=== PATIENT | female | born 1940 | race Caucasian/White ===

== ENCOUNTER → 2017-03-09 | Outpatient (CLI) | payer MEDICARE, OTHER ==
[~2017-03-09] VITALS: Ht 139.7 cm; Wt 79.8 kg
[~2017-03-09] MED LIST: ADV250 IH; ALBU8.5H3 IH; CARV6 PO; CILOOO OU; CLOP75 PO; DILT120T PO; FLUO5DRO3 OP; FURO20 PO; INSNOV SQ; INSU100I15 SQ; INSU100V12 SQ; PANT40TA25 PO; TIMO10DR28 OU; VIT D PO
[2017-03-09 13:55] VITALS: BP 150/66
== END | disposition home or self-care (01) ==
LOC: SRCNTR 13:32
PROVIDERS: ATTEND Internal Medicine Critical Care Medicine
DX: I13.2 Hypertensive heart and chronic kidney disease with heart failure and with stage 5 chronic kidney disease, or end stage renal disease (principal); N18.6 End stage renal disease; G47.33 Obstructive sleep apnea (adult) (pediatric); I34.0 Nonrheumatic mitral (valve) insufficiency; J90 Pleural effusion, not elsewhere classified; E78.5 Hyperlipidemia, unspecified
CPT/HCPCS: G0463

== ENCOUNTER → 2017-05-23 | Outpatient (CLI) | payer MEDICARE, OTHER ==
[~2017-05-23] MED LIST changes: +ALLO100T PO; +AMLO-512 PO; +AMLO2.5T PO; +AMLO5TAB66 PO; +ASA3 PO; +ASPI-556 PO; +ASPI325T PO; +AUD NEB; +CARV12 PO; +CARV3 PO; +CARV6.2579 PO; +CYCL10 PO; +DONE5TAB PO; +FEBU40T PO; +FENO135C PO; +FERR-89 PO; +FOLI1CAP23 PO; +FURO40 PO; +GABA-531 PO; +INSLAN SQ; +INSU100C3 SQ; +INSU100V SQ; +IPRAHFA IH; +ISOS30TA6 PO; +ISOS60TA4 PO; +KAYEXALATE; +LEVAHFA IH; +LEVO500 PO; +LISI-663 PO; +LOSA25TA21 PO; +METF10002 PO; +METO-323 PO; +NIFE60TA71 PO; +NIFE60TA81 PO; +NITR0.4T27 SL; +NTP TD; +OLME20TA14 PO; +PANT40TA PO; +POTA8TAB4 PO; +PRAV40 PO; +PRAV40TA; +PYRI100T2 PO; +UNKNOWN DIABETIC MED; +[UNRECOGNIZED DRUG - OTHER]; +[UNRECOGNIZED DRUG - REMARK]; +[UNRECOGNIZED DRUG - REMARK]; +allopurinol; +cipro; +gabapentin; +lasix; +plavix
== END | disposition home or self-care (01) ==
LOC: RADPV 13:31
PROVIDERS: ATTEND Internal Medicine
DX: M16.11 Unilateral primary osteoarthritis, right hip (principal)
CPT/HCPCS: 73502

== ENCOUNTER → 2017-07-20 | Outpatient (CLI) | payer MEDICARE, OTHER ==
[~2017-07-20] VITALS: Ht 139.7 cm; Wt 80.0 kg
[~2017-07-20] MED LIST changes: -ALLO100T PO; +AMLO-511 PO; -AMLO-512 PO; -AMLO2.5T PO; -AMLO5TAB66 PO; -ASA3 PO; -ASPI-556 PO; -ASPI325T PO; -AUD NEB; -CARV12 PO; -CARV3 PO; -CARV6.2579 PO; +CINA30 PO; -CYCL10 PO; -DONE5TAB PO; -FEBU40T PO; -FENO135C PO; -FERR-89 PO; +FOLI0.8T2 PO; -FOLI1CAP23 PO; -FURO40 PO; -INSLAN SQ; -INSU100C3 SQ; -INSU100I15 SQ; -INSU100V SQ; -IPRAHFA IH; -ISOS30TA6 PO; -ISOS60TA4 PO; -KAYEXALATE; -LEVAHFA IH; -LEVO500 PO; +LISI-662 PO; -LISI-663 PO; -LOSA25TA21 PO; -METF10002 PO; -METO-323 PO; -NIFE60TA71 PO; -NIFE60TA81 PO; -NITR0.4T27 SL; -NTP TD; -OLME20TA14 PO; -PANT40TA PO; -PANT40TA25 PO; +PHOSLOC PO; -POTA8TAB4 PO; -PRAV40 PO; -PRAV40TA; -PYRI100T2 PO; -UNKNOWN DIABETIC MED; -[UNRECOGNIZED DRUG - OTHER]; -[UNRECOGNIZED DRUG - REMARK]; -[UNRECOGNIZED DRUG - REMARK]; -allopurinol; -cipro; -gabapentin; -lasix; -plavix
[2017-07-20 14:11] VITALS: BP 122/43
== END | disposition home or self-care (01) ==
LOC: SRCNTR 13:34
PROVIDERS: ATTEND Internal Medicine Critical Care Medicine
DX: G47.33 Obstructive sleep apnea (adult) (pediatric) (principal); I34.0 Nonrheumatic mitral (valve) insufficiency; E78.5 Hyperlipidemia, unspecified; I13.2 Hypertensive heart and chronic kidney disease with heart failure and with stage 5 chronic kidney disease, or end stage renal disease; N18.6 End stage renal disease; I50.30 Unspecified diastolic (congestive) heart failure; I25.10 Atherosclerotic heart disease of native coronary artery without angina pectoris; J90 Pleural effusion, not elsewhere classified; Z79.4 Long term (current) use of insulin; Z99.2 Dependence on renal dialysis; Z95.5 Presence of coronary angioplasty implant and graft; Z87.891 Personal history of nicotine dependence
CPT/HCPCS: G0463

== ENCOUNTER 2017-08-26 11:36 | Inpatient (IN) | payer MEDICARE, OTHER ==
[~2017-08-26] VITALS: Ht 152.4 cm; Wt 77.0 kg
[2017-08-26 11:57] LABS: GLUCOSE,POINT OF CARE 145 MG/DL (70-110)
[2017-08-26 13:20] LABS: BASOPHILS # (AUTO) 0.04 K/uL (0.00-0.20); BASOPHILS % (AUTO) 0.4 % (0.0-2.0); EOSINOPHILS # (AUTO) 0.09 K/uL (0.00-0.70); HEMATOCRIT 31.4 % (36-46); HEMOGLOBIN 10.5 g/dL (12.0-16.0); LYMPHOCYTES % (AUTO) 12.3 % (22.0-44.0); MEAN CORPUSCULAR HEMOGLOBIN 34.3 pg (26.0-34.0); MEAN CORPUSCULAR HGB CONC 33.5 G/dL (31.0-37.0); MEAN CORPUSCULAR VOLUME 103 fL (80-100); MONOCYTES # (AUTO) 0.4 K/uL (0.1-1.0); NEUTROPHILS # (AUTO) 6.7 K/uL (1.8-7.7); NEUTROPHILS % (AUTO) 81.2 % (40.0-70.0); PLATELET COUNT (AUTO) 170 K/uL (150-450); RBC MORPHOLOGY COMMENT ABNORMAL RBC MORPH; RED BLOOD CELL COUNT(AUTO) 3.06 MIL/uL (4.00-5.20); RED CELL DISTRIBUTION WIDTH 14.5 % (11.5-14.5); WHITE BLOOD COUNT (AUTO) 8.3 K/uL (4.5-11.0)
[2017-08-26 13:27] LABS: PROTHROMBIN TIME 10.7 SEC (9.4-11.6)
[2017-08-26 13:33] LABS: B-TYPE NATRIURETIC PEPTIDE 289 pg/mL (0-100)
[2017-08-26 13:44] LABS: ALANINE AMINOTRANSFERASE 20 U/L (12-78); ALBUMIN 2.9 g/dL (3.4-5.0); ANION GAP 14 mmol/L (8-16); ASPARTATE AMINOTRANSFERASE 12 U/L (15-37); BILIRUBIN,TOTAL 0.1 mg/dL (0.1-1.0); CALCIUM, TOTAL 8.4 mg/dL (8.8-10.5); CARBON DIOXIDE 14 mmol/L (22-29); CHLORIDE 114 mmol/L (98-107); CREATINE KINASE, TOTAL 66 U/L (26-192); CREATININE 5.71 mg/dL (0.60-1.30); GLOMERULAR FILTR. RATE CALC 7 mL/min (>60); SODIUM SERUM 142 mmol/L (136-145); TOTAL PROTEIN, SERUM 6.9 g/dL (6.4-8.2); UREA NITROGEN, BLOOD 93 mg/dL (7-18)
[2017-08-26 13:50] LABS: POTASSIUM 6.8 mmol/L (3.5-5.1)
[2017-08-26 14:16] LABS: APPEARANCE,URINE HAZY (CLEAR); GLUCOSE, URINE (UA) NEGATIVE (NEGATIVE); KETONES,URINE NEGATIVE (NEGATIVE); OCCULT BLOOD,URINE TRACE (NEGATIVE); PH,URINE 5.5 (5.0-8.0); PROTEIN,URINE SEE CONFIRM (NEGATIVE)
[2017-08-26 14:17] LABS: ADD UA MICROSCOPIC YES; LEUKOCYTE ESTERASE ,URINE TRACE (NEGATIVE); SULFOSALICYLIC ACID,URINE 3+ (Negative)
[2017-08-26 14:18] LABS: RBC,URINE 0-2 /HPF (0-2); SQUAMOUS EPITHELIAL CELL,UR Rare /LPF (None Seen); WBC,URINE 26-50 /HPF (0-5)
[2017-08-26 14:19] LABS: HYALINE CASTS, URINE 0-2 /LPF (None Seen)
[2017-08-26] MEDS ORDERED: VITAD1000 PO (14:23)
[2017-08-26] MEDS ORDERED: INSULIN ASPART 100 UNITS/ML SQ ONE (14:30)
[2017-08-26] MEDS ORDERED: ALBUTEROL SULFATE 5 MG/ML 20 ML NEB SOLN [BULK] NEB ONE (14:30)
[2017-08-26] MEDS ORDERED: DEXTROSE 50%-WATER 25 GM/50 ML SYRINGE IVP ONE (14:30)
[2017-08-26] MEDS ORDERED: 0.9% SODIUM CHLORIDE 5 ML NEB SOLUTION NEB ONE (14:34)
[2017-08-26 14:37] LABS: GLUCOSE,POINT OF CARE 115 MG/DL (70-110)
[2017-08-26] MEDS ORDERED: ACETAMINOPHEN 325 MG TABLET PO PRN (15:00)
[2017-08-26] MEDS ORDERED: ONDANSETRON HCL 4 MG/2 ML VIAL IVP PRN (15:00)
[2017-08-26] MEDS ORDERED: 0.9% SODIUM CHLORIDE 10 ML SYRINGE IVP PRN (15:00)
[2017-08-26] MEDS ORDERED: HydrALAZINE HCL 20 MG/ML VIAL IVP PRN (16:15)
[2017-08-26] MEDS ORDERED: MAGNESIUM HYDROXIDE SUSPENSION 30 ML UDCUP PO PRN (16:15)
[2017-08-26] MEDS ORDERED: MORPHINE SULFATE 2 MG/ML SYRINGE IVP ONE (16:15)
[2017-08-26] MEDS ORDERED: ZOLPIDEM TARTRATE 5 MG TABLET PO PRN (16:15)
[2017-08-26] MEDS ORDERED: BISACODYL 10 MG RECTAL RECTAL SUPPOSITORY PR PRN (16:15)
[2017-08-26] MEDS ORDERED: DEXTROSE 50%-WATER 25 GM/50 ML SYRINGE IVP PRN (16:15)
[2017-08-26] MEDS ORDERED: HYDROCODONE/ACETAMINOPHEN 5-325 MG TABLET PO PRN (16:15)
[2017-08-26] MEDS ORDERED: ALBUTEROL SULFATE 2.5 MG/0.5 ML NEB SOLUTION NEB PRN (16:15)
[2017-08-26] MEDS ORDERED: MORPHINE SULFATE 2 MG/ML SYRINGE IVP PRN (16:15)
[2017-08-26 16:53] VITALS: BP 139/62
[2017-08-26] MEDS: ONDANSETRON HCL 4 MG/2 ML VIAL IVP PRN (17:03)
[2017-08-26] MEDS: INSULIN ASPART 100 UNITS/ML SQ PRN ×2 (17:31→21:34)
[2017-08-26 19:24] LABS: CALCIUM, TOTAL 8.4 mg/dL (8.8-10.5); CREATININE 4.05 mg/dL (0.60-1.30); POTASSIUM 4.1 mmol/L (3.5-5.1)
[2017-08-26 19:53] LABS: GLUCOSE,POINT OF CARE 202 MG/DL (70-110)
[2017-08-26 19:59] LABS: GLUCOSE COMMENT 1 Received Meds; GLUCOSE,POINT OF CARE 234 MG/DL (70-110)
[2017-08-26 20:00] VITALS: BP 162/57
[2017-08-26] MEDS: INSULIN DETEMIR 100 UNITS/ML SQ SCH (21:19)
[2017-08-26] MEDS: CARVEDILOL 6.25 MG TABLET PO SCH (21:20)
[2017-08-26] MEDS: DOCUSATE SODIUM 100 MG CAPSULE PO SCH (21:20)
[2017-08-27] VITALS (7 sets, daily range): BP systolic 126–168; BP diastolic 45–68
[2017-08-27] MEDS: HEPARIN SODIUM,PORCINE 5,000 UNITS/ML VIAL SQ SCH ×4 (00:07→23:21)
[2017-08-27] MEDS: NITROGLYCERIN 2% (1 GM=INCH) PACKET TP SCH ×4 (00:08→23:22)
[2017-08-27 04:51] LABS: EOSINOPHILS # (AUTO) 0.06 K/uL (0.00-0.70); EOSINOPHILS % (AUTO) 0.72 % (1.0-6.0); HEMATOCRIT 31.2 % (36-46); HEMOGLOBIN 10.4 g/dL (12.0-16.0); LYMPHOCYTES # (AUTO) 0.9 K/uL (1.0-4.8); LYMPHOCYTES % (AUTO) 10.4 % (22.0-44.0); MEAN CORPUSCULAR HGB CONC 33.2 G/dL (31.0-37.0); MEAN CORPUSCULAR VOLUME 103 fL (80-100); MONOCYTES # (AUTO) 0.6 K/uL (0.1-1.0); MONOCYTES % (AUTO) 6.8 % (2.0-9.0); NEUTROPHILS # (AUTO) 7.1 K/uL (1.8-7.7); NEUTROPHILS % (AUTO) 82.2 % (40.0-70.0); PLATELET COUNT (AUTO) 152 K/uL (150-450); RED BLOOD CELL COUNT(AUTO) 3.04 MIL/uL (4.00-5.20); RED CELL DISTRIBUTION WIDTH 14.4 % (11.5-14.5); WHITE BLOOD COUNT (AUTO) 8.6 K/uL (4.5-11.0)
[2017-08-27 05:17] LABS: ALBUMIN 2.8 g/dL (3.4-5.0); BILIRUBIN,TOTAL 0.2 mg/dL (0.1-1.0); CREATININE 4.87 mg/dL (0.60-1.30); TOTAL PROTEIN, SERUM 6.3 g/dL (6.4-8.2)
[2017-08-27 05:31] LABS: POTASSIUM 6.3 mmol/L (3.5-5.1)
[2017-08-27 06:50] LABS: RBC MORPHOLOGY COMMENT ABNORMAL RBC MORPH
[2017-08-27 07:21] LABS: GLUCOSE,POINT OF CARE 179 MG/DL (70-110)
[2017-08-27 07:21] LABS: GLUCOSE,POINT OF CARE 101 MG/DL (70-110)
[2017-08-27] MEDS: CINACALCET HCL 30 MG TABLET PO SCH ×2 (08:00→10:01)
[2017-08-27] MEDS: ONDANSETRON HCL 4 MG/2 ML VIAL IVP PRN ×3 (08:55→23:22)
[2017-08-27] MEDS: PANTOPRAZOLE SODIUM 40 MG DR TABLET PO SCH ×2 (09:00→10:00)
[2017-08-27] MEDS: CHOLECALCIFEROL (VIT D3) 1,000 UNITS TABLET PO SCH ×2 (09:00→10:00)
[2017-08-27] MEDS: CLOPIDOGREL BISULFATE 75 MG TABLET PO SCH ×2 (09:00→10:00)
[2017-08-27] MEDS: LISINOPRIL 20 MG TABLET PO SCH ×2 (09:00→10:01)
[2017-08-27] MEDS: CARVEDILOL 6.25 MG TABLET PO SCH ×3 (09:00→21:53)
[2017-08-27] MEDS: DOCUSATE SODIUM 100 MG CAPSULE PO SCH ×3 (09:00→21:53)
[2017-08-27 09:35] LABS: CREATINE KINASE MB 1.8 ng/mL (0-5); CREATINE KINASE, TOTAL 81 U/L (26-192)
[2017-08-27 12:46] LABS: ANION GAP 7 mmol/L (8-16); CALCIUM, TOTAL 8.1 mg/dL (8.8-10.5); CARBON DIOXIDE 27 mmol/L (22-29); CHLORIDE 104 mmol/L (98-107); CREATINE KINASE MB 1.9 ng/mL (0-5); CREATINE KINASE, TOTAL 86 U/L (26-192); CREATININE 2.14 mg/dL (0.60-1.30); GLOMERULAR FILTR. RATE CALC 22 mL/min (>60); SODIUM SERUM 138 mmol/L (136-145); UREA NITROGEN, BLOOD 17 mg/dL (7-18)
[2017-08-27] MEDS ORDERED: PENTETATE DTPA TC99M/MCL ISOTOPE 1 EA INJ INJ ONE (13:00)
[2017-08-27] MEDS ORDERED: MAA ALBUMIN AGGREGATED TC99M/UD<10MCL ISOTOPE 1 EA INJ INJ ONE (15:00)
[2017-08-27] MEDS: ACETAMINOPHEN 325 MG TABLET PO PRN (16:11)
[2017-08-27 19:22] LABS: GLUCOSE COMMENT 1 Received Meds; GLUCOSE,POINT OF CARE 138 MG/DL (70-110)
[2017-08-27 20:52] LABS: GLUCOSE,POINT OF CARE 127 MG/DL (70-110)
[2017-08-27] MEDS: INSULIN DETEMIR 100 UNITS/ML SQ SCH (21:59)
[2017-08-27 22:38] LABS: GLUCOSE,POINT OF CARE 123 MG/DL (70-110)
[2017-08-28 04:17] VITALS: BP 116/50
[2017-08-28 06:49] LABS: BASOPHILS % (AUTO) 0.2 % (0.0-2.0); EOSINOPHILS % (AUTO) 0.5 % (1.0-6.0); HEMATOCRIT 32.1 % (36-46); HEMOGLOBIN 10.7 g/dL (12.0-16.0); LYMPHOCYTES # (AUTO) 1.1 K/uL (1.0-4.8); LYMPHOCYTES % (AUTO) 13.1 % (22.0-44.0); MEAN CORPUSCULAR HEMOGLOBIN 33.8 pg (26.0-34.0); MEAN CORPUSCULAR HGB CONC 33.4 G/dL (31.0-37.0); MEAN CORPUSCULAR VOLUME 101 fL (80-100); MONOCYTES # (AUTO) 0.5 K/uL (0.1-1.0); MONOCYTES % (AUTO) 6.3 % (2.0-9.0); NEUTROPHILS # (AUTO) 6.7 K/uL (1.8-7.7); NEUTROPHILS % (AUTO) 79.9 % (40.0-70.0); PLATELET COUNT (AUTO) 162 K/uL (150-450); RED BLOOD CELL COUNT(AUTO) 3.18 MIL/uL (4.00-5.20); RED CELL DISTRIBUTION WIDTH 14.1 % (11.5-14.5); WHITE BLOOD COUNT (AUTO) 8.4 K/uL (4.5-11.0)
[2017-08-28 06:50] LABS: CALCIUM, TOTAL 7.9 mg/dL (8.8-10.5); CREATININE 3.83 mg/dL (0.60-1.30); POTASSIUM 5.1 mmol/L (3.5-5.1)
[2017-08-28 07:17] VITALS: BP 127/58
[2017-08-28] MEDS: CLOPIDOGREL BISULFATE 75 MG TABLET PO SCH (08:08)
[2017-08-28] MEDS: HEPARIN SODIUM,PORCINE 5,000 UNITS/ML VIAL SQ SCH ×2 (08:08→16:08)
[2017-08-28] MEDS: CINACALCET HCL 30 MG TABLET PO SCH (08:08)
[2017-08-28] MEDS: LISINOPRIL 20 MG TABLET PO SCH (08:08)
[2017-08-28] MEDS: CARVEDILOL 6.25 MG TABLET PO SCH ×2 (08:09→21:11)
[2017-08-28] MEDS: NITROGLYCERIN 2% (1 GM=INCH) PACKET TP SCH ×2 (08:09→16:08)
[2017-08-28] MEDS: PANTOPRAZOLE SODIUM 40 MG DR TABLET PO SCH (08:09)
[2017-08-28] MEDS: DOCUSATE SODIUM 100 MG CAPSULE PO SCH ×2 (08:09→21:11)
[2017-08-28] MEDS: CHOLECALCIFEROL (VIT D3) 1,000 UNITS TABLET PO SCH (08:09)
[2017-08-28 10:00] LABS: RBC MORPHOLOGY COMMENT ABNORMAL RBC MORPH
[2017-08-28 11:10] VITALS: BP 118/49
[2017-08-28] MEDS: INSULIN ASPART 100 UNITS/ML SQ PRN (11:51)
[2017-08-28 12:18] LABS: GLUCOSE,POINT OF CARE 140 MG/DL (70-110)
[2017-08-28] MEDS ORDERED: BISACODYL 5 MG EC TABLET PO PRN (14:15)
[2017-08-28 15:28] VITALS: BP 144/56
[2017-08-28 17:28] LABS: GLUCOSE,POINT OF CARE 116 MG/DL (70-110)
[2017-08-28 17:28] LABS: GLUCOSE,POINT OF CARE 86 MG/DL (70-110)
[2017-08-28 19:30] VITALS: BP 117/49
[2017-08-28] MEDS: INSULIN DETEMIR 100 UNITS/ML SQ SCH (21:14)
[2017-08-28] MEDS ORDERED: 0.9% SODIUM CHLORIDE 5 ML NEB SOLUTION NEB ONE (21:39)
[2017-08-28 23:39] VITALS: BP 115/55
[2017-08-29] MEDS: HEPARIN SODIUM,PORCINE 5,000 UNITS/ML VIAL SQ SCH ×3 (00:06→16:50)
[2017-08-29] MEDS: NITROGLYCERIN 2% (1 GM=INCH) PACKET TP SCH ×3 (00:06→16:50)
[2017-08-29 04:32] VITALS: BP 115/49
[2017-08-29 06:06] LABS: BASOPHILS % (AUTO) 0.2 % (0.0-2.0); EOSINOPHILS % (AUTO) 1.5 % (1.0-6.0); LYMPHOCYTES # (AUTO) 1.2 K/uL (1.0-4.8); LYMPHOCYTES % (AUTO) 15.8 % (22.0-44.0); MEAN CORPUSCULAR HEMOGLOBIN 34.1 pg (26.0-34.0); MEAN CORPUSCULAR HGB CONC 33.4 G/dL (31.0-37.0); MEAN CORPUSCULAR VOLUME 102 fL (80-100); MONOCYTES # (AUTO) 0.5 K/uL (0.1-1.0); MONOCYTES % (AUTO) 6.7 % (2.0-9.0); NEUTROPHILS # (AUTO) 5.7 K/uL (1.8-7.7); NEUTROPHILS % (AUTO) 75.8 % (40.0-70.0); PLATELET COUNT (AUTO) 152 K/uL (150-450); RED BLOOD CELL COUNT(AUTO) 2.94 MIL/uL (4.00-5.20); RED CELL DISTRIBUTION WIDTH 14.1 % (11.5-14.5); WHITE BLOOD COUNT (AUTO) 7.5 K/uL (4.5-11.0)
[2017-08-29 06:22] LABS: CALCIUM, TOTAL 7.6 mg/dL (8.8-10.5); CREATININE 5.21 mg/dL (0.60-1.30); POTASSIUM 4.8 mmol/L (3.5-5.1)
[2017-08-29 07:00] VITALS: BP 114/46
[2017-08-29 07:22] LABS: GLUCOSE COMMENT 1 Received Meds; GLUCOSE,POINT OF CARE 168 MG/DL (70-110)
[2017-08-29 07:53] LABS: RBC MORPHOLOGY COMMENT ABNORMAL RBC MORPH
[2017-08-29 09:09] LABS: GLUCOSE,POINT OF CARE 99 MG/DL (70-110)
[2017-08-29] MEDS ORDERED: LEVO500 PO (10:25)
[2017-08-29 11:17] VITALS: BP 120/57
[2017-08-29] MEDS: CLOPIDOGREL BISULFATE 75 MG TABLET PO SCH (13:14)
[2017-08-29] MEDS: CHOLECALCIFEROL (VIT D3) 1,000 UNITS TABLET PO SCH (13:14)
[2017-08-29] MEDS: CARVEDILOL 6.25 MG TABLET PO SCH (13:14)
[2017-08-29] MEDS: CINACALCET HCL 30 MG TABLET PO SCH (13:14)
[2017-08-29] MEDS: LISINOPRIL 20 MG TABLET PO SCH (13:15)
[2017-08-29] MEDS: DOCUSATE SODIUM 100 MG CAPSULE PO SCH (13:15)
[2017-08-29] MEDS: PANTOPRAZOLE SODIUM 40 MG DR TABLET PO SCH (13:15)
[2017-08-29 15:24] VITALS: BP 127/52
[2017-08-29] MEDS: INSULIN ASPART 100 UNITS/ML SQ PRN (17:49)
[2017-08-29] MEDS: ACETAMINOPHEN 325 MG TABLET PO PRN (18:21)
[2017-08-29] MEDS ORDERED: MANNITOL 25%-12.5 GM/50 ML VIAL IVP ONE (18:31)
[2017-08-30 06:28] LABS: GLUCOSE,POINT OF CARE 140 MG/DL (70-110)
[2017-08-30 06:28] LABS: GLUCOSE,POINT OF CARE 162 MG/DL (70-110)
[2017-08-31] MEDS ORDERED: EPOETIN ALFA 10,000 UNITS/ML 2 ML VIAL SQ SCH (09:00)
== END 2017-08-29 18:40 | disposition home or self-care (01) | DRG 291 ==
LOC: EMS 11:38 → 5N 14:48 → ICU 19:09 → 5S 08-27 17:30
PROVIDERS: ADMIT Internal Medicine; ATTEND Internal Medicine
PROC: 5A1D70Z Performance of Urinary Filtration, Intermittent, Less than 6 Hours Per Day (ICD-10-PCS; 2017-08-26)
PROC: 5A09357 Assistance with Respiratory Ventilation, Less than 24 Consecutive Hours, Continuous Positive Airway Pressure (ICD-10-PCS; 2017-08-26)
PROC: 5A1D70Z Performance of Urinary Filtration, Intermittent, Less than 6 Hours Per Day (ICD-10-PCS; principal; 2017-08-27)
PROC: 5A1D70Z Performance of Urinary Filtration, Intermittent, Less than 6 Hours Per Day (ICD-10-PCS; 2017-08-29)
DX: I13.2 Hypertensive heart and chronic kidney disease with heart failure and with stage 5 chronic kidney disease, or end stage renal disease (principal); I50.31 Acute diastolic (congestive) heart failure; E43 Unspecified severe protein-calorie malnutrition; E87.2 Acidosis; I95.9 Hypotension, unspecified; E11.21 Type 2 diabetes mellitus with diabetic nephropathy; E87.5 Hyperkalemia; I27.20 Pulmonary hypertension, unspecified; E11.22 Type 2 diabetes mellitus with diabetic chronic kidney disease; N18.6 End stage renal disease; I31.3 Pericardial effusion (noninflammatory); J98.11 Atelectasis; N39.0 Urinary tract infection, site not specified; D63.1 Anemia in chronic kidney disease; E78.5 Hyperlipidemia, unspecified; G47.33 Obstructive sleep apnea (adult) (pediatric); I25.10 Atherosclerotic heart disease of native coronary artery without angina pectoris; I34.0 Nonrheumatic mitral (valve) insufficiency; R00.0 Tachycardia, unspecified; Z91.19 Patient's noncompliance with other medical treatment and regimen; Z68.33 Body mass index [BMI] 33.0-33.9, adult; Z98.61 Coronary angioplasty status; Z99.2 Dependence on renal dialysis; Z79.02 Long term (current) use of antithrombotics/antiplatelets; Z79.899 Other long term (current) drug therapy; Z79.4 Long term (current) use of insulin; Z87.01 Personal history of pneumonia (recurrent); Z90.49 Acquired absence of other specified parts of digestive tract; Z87.891 Personal history of nicotine dependence; Z91.11 Patient's noncompliance with dietary regimen; Z82.49 Family history of ischemic heart disease and other diseases of the circulatory system
CPT/HCPCS: 78582; 82962; 87081; 87086; 87340; 90935; 93005; 93308; 94640; 94660; 96372; 96374; 99291; A9539; A9540; J0360; J1644; J1815; J2150; J2270; J2405

== ENCOUNTER → 2017-09-16 | Outpatient (CLI) | payer MEDICARE, OTHER ==
[~2017-09-16] MED LIST changes: +ACYC200C PO; -ADV250 IH; -ALBU8.5H3 IH; -AMLO-511 PO; -CILOOO OU; -DILT120T PO; -FLUO5DRO3 OP; +LEVO500 PO; +PANT40TA25 PO; -TIMO10DR28 OU; -VIT D PO; +VITAD1000 PO
== END | disposition home or self-care (01) ==
LOC: RADPV 11:55
PROVIDERS: ATTEND Internal Medicine
DX: M47.814 Spondylosis without myelopathy or radiculopathy, thoracic region (principal); M25.78 Osteophyte, vertebrae; M47.816 Spondylosis without myelopathy or radiculopathy, lumbar region; M51.36 Other intervertebral disc degeneration, lumbar region; M51.37 Other intervertebral disc degeneration, lumbosacral region
CPT/HCPCS: 72070; 72100

== ENCOUNTER 2017-09-22 16:35 | Inpatient (IN) | payer MEDICARE, OTHER ==
[~2017-09-22] VITALS: Ht 147.3 cm; Wt 78.7 kg
[~2017-09-22 16:35] MED LIST changes: -ACYC200C PO; -GABA-531 PO; -PANT40TA25 PO
[2017-09-22] MEDS ORDERED: FOLI0.8T2 PO (16:45)
[2017-09-22] MEDS ORDERED: ACYC200C PO (16:45)
[2017-09-22] MEDS ORDERED: PANT40TA25 PO (16:45)
[2017-09-22] MEDS ORDERED: GABA-531 PO (16:45)
[2017-09-22] MEDS ORDERED: FUROSEMIDE 40 MG/4 ML VIAL IVP ONE (16:45)
[2017-09-22 16:53] LABS: GLUCOSE,POINT OF CARE 172 MG/DL (70-110)
[2017-09-22 16:59] LABS: BASOPHILS # (AUTO) 0.01 K/uL (0.00-0.20); BASOPHILS % (AUTO) 0.2 % (0.0-2.0); EOSINOPHILS # (AUTO) 0.07 K/uL (0.00-0.70); EOSINOPHILS % (AUTO) 1.07 % (1.0-6.0); HEMATOCRIT 29.1 % (36-46); HEMOGLOBIN 9.6 g/dL (12.0-16.0); LYMPHOCYTES # (AUTO) 1.1 K/uL (1.0-4.8); LYMPHOCYTES % (AUTO) 16.5 % (22.0-44.0); MEAN CORPUSCULAR HEMOGLOBIN 33.8 pg (26.0-34.0); MEAN CORPUSCULAR HGB CONC 33.1 G/dL (31.0-37.0); MEAN CORPUSCULAR VOLUME 102 fL (80-100); MONOCYTES # (AUTO) 0.3 K/uL (0.1-1.0); MONOCYTES % (AUTO) 4.8 % (2.0-9.0); NEUTROPHILS # (AUTO) 5.1 K/uL (1.8-7.7); NEUTROPHILS % (AUTO) 77.4 % (40.0-70.0); PLATELET COUNT (AUTO) 173 K/uL (150-450); RED BLOOD CELL COUNT(AUTO) 2.85 MIL/uL (4.00-5.20); RED CELL DISTRIBUTION WIDTH 14.8 % (11.5-14.5)
[2017-09-22 17:23] LABS: CHLORIDE 111 mmol/L (98-107); SODIUM SERUM 143 mmol/L (136-145)
[2017-09-22 17:24] LABS: ALANINE AMINOTRANSFERASE 23 U/L (12-78); ALKALINE PHOSPHATASE 75 U/L (46-116); ANION GAP 13 mmol/L (8-16); ASPARTATE AMINOTRANSFERASE 18 U/L (15-37); BILIRUBIN,TOTAL 0.4 mg/dL (0.1-1.0); CALCIUM, TOTAL 9.3 mg/dL (8.8-10.5); CARBON DIOXIDE 19 mmol/L (22-29); CREATINE KINASE, TOTAL 200 U/L (26-192); CREATININE 9.66 mg/dL (0.60-1.30); GLOMERULAR FILTR. RATE CALC 4 mL/min (>60); GLUCOSE,RANDOM 182 mg/dL (70-110)
[2017-09-22 17:25] LABS: ALBUMIN 2.9 g/dL (3.4-5.0); B-TYPE NATRIURETIC PEPTIDE 904 pg/mL (0-100); TOTAL PROTEIN, SERUM 6.8 g/dL (6.4-8.2)
[2017-09-22 17:27] LABS: POTASSIUM 7.8 mmol/L (3.5-5.1)
[2017-09-22 17:28] LABS: UREA NITROGEN, BLOOD 119 mg/dL (7-18)
[2017-09-22] MEDS ORDERED: SODIUM POLYSTYRENE SULFONATE 15 GM/60 ML SUSPENSION BOTTLE PO ONE (17:30)
[2017-09-22] MEDS ORDERED: ALBUTEROL SULFATE 2.5 MG/0.5 ML NEB SOLUTION NEB ONE ×2 (17:30)
[2017-09-22] MEDS ORDERED: INSULIN REGULAR, HUMAN 100 UNITS/ML IVP ONE (17:30)
[2017-09-22] MEDS ORDERED: SODIUM BICARBONATE [ADULT] 8.4% 50 MEQ/50 ML SYRINGE IVP ONE (17:30)
[2017-09-22] MEDS ORDERED: DEXTROSE 50%-WATER 25 GM/50 ML SYRINGE IVP ONE (17:30)
[2017-09-22 17:41] LABS: ABG BASE EXCESS -7.1 mmol/L (-2.0-3.0); ABG CARBOXYHEMOGLOBIN 1.9 % (0.0-1.5); ABG HCO3 18.8 mmol/L (22.0-26.0); ABG METHEMOGLOBIN 0.1 % (0.0-1.5); ABG OXYGEN CONTENT 12.1 mL/dL (15.0-23.0); ABG OXYGEN SATURATION 89.3 % (95.0-98.0); ABG OXYHEMOGLOBIN 87.5 % (94.0-100.0); ABG PCO2 42 mmHg (35-45); ABG PH 7.286 (7.35-7.450); ABG TOTAL HEMOGLOBIN 9.8 G/dL (12.0-18.0); PO2, ARTERIAL BG 61.4 mmHg (75.0-83.0); SOURCE, BLOOD GAS ARTERIAL; TEMPERATURE, FAHRENHEIT, BG 98.8 FAHREN (96.0-98.6)
[2017-09-22 17:42] LABS: O2 DEVICE,BLOOD GAS ROOM AIR (ROOM AIR); SITE, BLOOD GAS LFT BRACHIAL
[2017-09-22 17:45] LABS: CREATINE KINASE MB 1.5 ng/mL (0-5)
[2017-09-22] MEDS ORDERED: 0.9% SODIUM CHLORIDE 10 ML SYRINGE IVP PRN (18:00)
[2017-09-22] MEDS ORDERED: ONDANSETRON HCL 4 MG/2 ML VIAL IVP PRN (18:00)
[2017-09-22] MEDS ORDERED: INSULIN ASPART 100 UNITS/ML SQ PRN (18:00)
[2017-09-22] MEDS ORDERED: DEXTROSE 50%-WATER 25 GM/50 ML SYRINGE IVP PRN ×2 (18:00→22:00)
[2017-09-22] MEDS ORDERED: ACETAMINOPHEN 325 MG TABLET PO PRN ×2 (18:00→22:00)
[2017-09-22 18:32] LABS: GLUCOSE,POINT OF CARE 301 MG/DL (70-110)
[2017-09-22 18:43] LABS: GLUCOSE,POINT OF CARE 314 MG/DL (70-110)
[2017-09-22 18:56] LABS: APPEARANCE,URINE CLOUDY (CLEAR); BILIRUBIN,URINE NEGATIVE (NEGATIVE); GLUCOSE, URINE (UA) 250 mg/dL (NEGATIVE); KETONES,URINE NEGATIVE (NEGATIVE); LEUKOCYTE ESTERASE ,URINE NEGATIVE (NEGATIVE); NITRATE,URINE NEGATIVE (NEGATIVE); OCCULT BLOOD,URINE TRACE (NEGATIVE); PH,URINE 6.5 (5.0-8.0); PROTEIN,URINE SEE CONFIRM (NEGATIVE); UROBILINOGEN,URINE 0.2 mg/dL (<=1.0)
[2017-09-22 19:20] VITALS: BP 197/67
[2017-09-22 19:55] VITALS: BP 156/72
[2017-09-22 20:02] LABS: BACTERIA,URINE Few /HPF (None Seen); SQUAMOUS EPITHELIAL CELL,UR Moderate /LPF (None Seen); SULFOSALICYLIC ACID,URINE 3+ (Negative); WBC,URINE 0-2 /HPF (0-5)
[2017-09-22] MEDS ORDERED: MANNITOL 25%-12.5 GM/50 ML VIAL IVP PRN (20:30)
[2017-09-22] MEDS ORDERED: ALBUMIN HUMAN 25%-12.5GM/50ML IV BOTTLE IV PRN (20:30)
[2017-09-22 21:17] VITALS: BP 129/62
[2017-09-22 21:43] LABS: GLUCOMETER DEV NAME(LOC) 5N 1M; GLUCOSE,POINT OF CARE 174 MG/DL (70-110)
[2017-09-22] MEDS ORDERED: BISACODYL 10 MG RECTAL RECTAL SUPPOSITORY PR PRN (22:00)
[2017-09-22] MEDS ORDERED: ALBUTEROL SULFATE 2.5 MG/0.5 ML NEB SOLUTION NEB PRN (22:00)
[2017-09-23 00:02] VITALS: BP 157/63
[2017-09-23 05:29] VITALS: BP 147/68
[2017-09-23 06:38] LABS: BASOPHILS % (AUTO) 0.3 % (0.0-2.0); EOSINOPHILS % (AUTO) 0.8 % (1.0-6.0); HEMATOCRIT 27.5 % (36-46); HEMOGLOBIN 9.4 g/dL (12.0-16.0); LYMPHOCYTES # (AUTO) 0.9 K/uL (1.0-4.8); LYMPHOCYTES % (AUTO) 12.1 % (22.0-44.0); MEAN CORPUSCULAR HEMOGLOBIN 34.2 pg (26.0-34.0); MEAN CORPUSCULAR VOLUME 101 fL (80-100); MONOCYTES # (AUTO) 0.5 K/uL (0.1-1.0); MONOCYTES % (AUTO) 6.7 % (2.0-9.0); NEUTROPHILS # (AUTO) 6.2 K/uL (1.8-7.7); NEUTROPHILS % (AUTO) 80.1 % (40.0-70.0); PLATELET COUNT (AUTO) 169 K/uL (150-450); RED BLOOD CELL COUNT(AUTO) 2.74 MIL/uL (4.00-5.20); RED CELL DISTRIBUTION WIDTH 14.2 % (11.5-14.5)
[2017-09-23 06:54] LABS: ALBUMIN 2.7 g/dL (3.4-5.0); BILIRUBIN,TOTAL 0.4 mg/dL (0.1-1.0); CALCIUM, TOTAL 8.3 mg/dL (8.8-10.5); CREATININE 7.08 mg/dL (0.60-1.30); POTASSIUM 4.1 mmol/L (3.5-5.1); TOTAL PROTEIN, SERUM 6.3 g/dL (6.4-8.2)
[2017-09-23 07:47] VITALS: BP 156/62
[2017-09-23] MEDS: DOCUSATE SODIUM 100 MG CAPSULE PO SCH ×2 (08:33→20:46)
[2017-09-23] MEDS: CLOPIDOGREL BISULFATE 75 MG TABLET PO SCH (08:33)
[2017-09-23] MEDS: PANTOPRAZOLE SODIUM 40 MG DR TABLET PO SCH (08:33)
[2017-09-23] MEDS: HEPARIN SODIUM,PORCINE 5,000 UNITS/ML VIAL SQ SCH ×2 (08:33→20:46)
[2017-09-23] MEDS: ASPIRIN 81 MG CHEWABLE TABLET PO SCH (08:33)
[2017-09-23] MEDS: CARVEDILOL 6.25 MG TABLET PO SCH ×2 (09:00→20:46)
[2017-09-23] MEDS ORDERED: DOXERCALCIFEROL 4 MCG/2 ML AMP IVP SCH (09:45)
[2017-09-23] MEDS ORDERED: EPOETIN ALFA 10,000 UNITS/ML 2 ML VIAL SQ ONE (09:45)
[2017-09-23 11:31] VITALS: BP 144/57
[2017-09-23] MEDS: INSULIN ASPART 100 UNITS/ML SQ PRN ×2 (12:08→17:57)
[2017-09-23 15:08] VITALS: BP 150/62
[2017-09-23] MEDS: CINACALCET HCL 30 MG TABLET PO SCH (17:57)
[2017-09-23 19:32] VITALS: BP 148/57
[2017-09-23] MEDS ORDERED: ATORVASTATIN CALCIUM 20 MG TABLET PO SCH (21:00)
[2017-09-23] MEDS ORDERED: DOXERCALCIFEROL 4 MCG/2 ML AMP IVP PRN (21:00)
[2017-09-24 00:01] VITALS: BP 154/55
[2017-09-24 04:46] VITALS: BP 132/52
[2017-09-24 06:33] LABS: GLUCOMETER DEV NAME(LOC) 5N 1M; GLUCOSE,POINT OF CARE 135 MG/DL (70-110)
[2017-09-24 06:33] LABS: GLUCOMETER DEV NAME(LOC) 5N 1M; GLUCOSE,POINT OF CARE 113 MG/DL (70-110)
[2017-09-24 06:33] LABS: GLUCOMETER DEV NAME(LOC) 5N 1M; GLUCOSE,POINT OF CARE 177 MG/DL (70-110)
[2017-09-24 07:36] VITALS: BP 145/48
[2017-09-24] MEDS: PANTOPRAZOLE SODIUM 40 MG DR TABLET PO SCH (09:01)
[2017-09-24] MEDS: DOCUSATE SODIUM 100 MG CAPSULE PO SCH (09:01)
[2017-09-24] MEDS: ASPIRIN 81 MG CHEWABLE TABLET PO SCH (09:02)
[2017-09-24] MEDS: HEPARIN SODIUM,PORCINE 5,000 UNITS/ML VIAL SQ SCH (09:02)
[2017-09-24] MEDS: CLOPIDOGREL BISULFATE 75 MG TABLET PO SCH (09:02)
[2017-09-24] MEDS ORDERED: ONDANSETRON HCL 4 MG/2 ML VIAL IVP PRN (10:45)
[2017-09-24 11:32] VITALS: BP 129/55
[2017-09-24 12:10] LABS: GLUCOMETER DEV NAME(LOC) 5N 2R; GLUCOSE,POINT OF CARE 127 MG/DL (70-110)
[2017-09-24 12:10] LABS: GLUCOMETER DEV NAME(LOC) 5N 2R; GLUCOSE,POINT OF CARE 171 MG/DL (70-110)
[2017-09-24 12:10] LABS: GLUCOMETER DEV NAME(LOC) 5N 2R; GLUCOSE,POINT OF CARE 103 MG/DL (70-110)
[2017-09-24] MEDS: INSULIN ASPART 100 UNITS/ML SQ PRN ×2 (12:59→17:50)
[2017-09-24] MEDS: CARVEDILOL 6.25 MG TABLET PO SCH (13:00)
[2017-09-24 15:27] VITALS: BP 118/43
[2017-09-24 17:13] LABS: GLUCOMETER DEV NAME(LOC) 5N 2R; GLUCOSE,POINT OF CARE 113 MG/DL (70-110)
[2017-09-24] MEDS: CINACALCET HCL 30 MG TABLET PO SCH (18:04)
[2017-09-27] MEDS ORDERED: EPOETIN ALFA 10,000 UNITS/ML 2 ML VIAL SQ SCH (09:00)
== END 2017-09-24 19:05 | disposition home or self-care (01) | DRG 640 ==
LOC: EMS 16:37 → 5N 18:00
PROVIDERS: ADMIT Internal Medicine; ATTEND Internal Medicine
PROC: 5A1D70Z Performance of Urinary Filtration, Intermittent, Less than 6 Hours Per Day (ICD-10-PCS; principal; 2017-09-22)
PROC: 5A1D70Z Performance of Urinary Filtration, Intermittent, Less than 6 Hours Per Day (ICD-10-PCS; 2017-09-23)
PROC: 5A1D70Z Performance of Urinary Filtration, Intermittent, Less than 6 Hours Per Day (ICD-10-PCS; 2017-09-24)
DX: E87.5 Hyperkalemia (principal); N18.6 End stage renal disease; N17.9 Acute kidney failure, unspecified; E44.0 Moderate protein-calorie malnutrition; E87.2 Acidosis; I50.9 Heart failure, unspecified; E11.21 Type 2 diabetes mellitus with diabetic nephropathy; E11.65 Type 2 diabetes mellitus with hyperglycemia; E11.22 Type 2 diabetes mellitus with diabetic chronic kidney disease; Z91.19 Patient's noncompliance with other medical treatment and regimen; E66.9 Obesity, unspecified; D63.1 Anemia in chronic kidney disease; I12.9 Hypertensive chronic kidney disease with stage 1 through stage 4 chronic kidney disease, or unspecified chronic kidney disease; I25.10 Atherosclerotic heart disease of native coronary artery without angina pectoris; M16.10 Unilateral primary osteoarthritis, unspecified hip; Z79.4 Long term (current) use of insulin; Z82.49 Family history of ischemic heart disease and other diseases of the circulatory system; Z83.3 Family history of diabetes mellitus; Z86.19 Personal history of other infectious and parasitic diseases; Z87.891 Personal history of nicotine dependence; Z91.15 Patient's noncompliance with renal dialysis; Z95.1 Presence of aortocoronary bypass graft; Z95.5 Presence of coronary angioplasty implant and graft; Z99.2 Dependence on renal dialysis; Z99.81 Dependence on supplemental oxygen
CPT/HCPCS: 82805; 82962; 87040; 87081; 87340; 90935; 93005; 96374; 96375; 99291; J0885; J1644; J1815; J1940; J2405; J3490

== ENCOUNTER → 2017-12-21 | Outpatient (CLI) | payer MEDICARE, OTHER ==
[~2017-12-21] VITALS: Ht 139.7 cm; Wt 79.5 kg
[~2017-12-21] MED LIST changes: -FURO20 PO; +FURO40 PO; +GABA-531 PO; -LEVO500 PO; +PANT40TA25 PO
[2017-12-21 11:44] VITALS: BP 146/50
== END | disposition home or self-care (01) ==
LOC: SRCNTR 11:37
PROVIDERS: ATTEND Internal Medicine Critical Care Medicine
DX: G47.33 Obstructive sleep apnea (adult) (pediatric) (principal); I12.0 Hypertensive chronic kidney disease with stage 5 chronic kidney disease or end stage renal disease; N18.6 End stage renal disease; J90 Pleural effusion, not elsewhere classified; I34.0 Nonrheumatic mitral (valve) insufficiency; I27.20 Pulmonary hypertension, unspecified; E78.5 Hyperlipidemia, unspecified; I25.10 Atherosclerotic heart disease of native coronary artery without angina pectoris; Z99.2 Dependence on renal dialysis; Z99.81 Dependence on supplemental oxygen
CPT/HCPCS: G0463

== ENCOUNTER → 2017-12-23 | Outpatient (CLI) | payer MEDICARE, OTHER ==
[~2017-12-23] MED LIST changes: -FURO40 PO; -GABA-531 PO; -INSU100V12 SQ; -LISI-662 PO
== END | disposition home or self-care (01) ==
LOC: RADPV 08:48
PROVIDERS: ATTEND Internal Medicine Critical Care Medicine
DX: I08.3 Combined rheumatic disorders of mitral, aortic and tricuspid valves (principal)
CPT/HCPCS: 93306

== ENCOUNTER → 2017-12-30 | Outpatient (CLI) | payer MEDICARE, OTHER ==
[~2017-12-30] VITALS: Ht 139.7 cm; Wt 72.0 kg
[~2017-12-30] MED LIST changes: +FURO40 PO; +GABA-531 PO; +INSU100V12 SQ; +LISI-662 PO
[2017-12-30 10:29] VITALS: BP 112/43
== END | disposition home or self-care (01) ==
LOC: SRCNTR 10:02
PROVIDERS: ATTEND Internal Medicine Cardiovascular Disease
DX: I25.10 Atherosclerotic heart disease of native coronary artery without angina pectoris (principal); I12.0 Hypertensive chronic kidney disease with stage 5 chronic kidney disease or end stage renal disease; E11.22 Type 2 diabetes mellitus with diabetic chronic kidney disease; N18.6 End stage renal disease; E78.5 Hyperlipidemia, unspecified; J44.9 Chronic obstructive pulmonary disease, unspecified; G47.30 Sleep apnea, unspecified; Z99.2 Dependence on renal dialysis
CPT/HCPCS: G0463

== ENCOUNTER → 2018-03-20 | Outpatient (CLI) | payer MEDICARE, OTHER ==
[~2018-03-20] VITALS: Ht 139.7 cm; Wt 78.0 kg
[~2018-03-20] MED LIST changes: +AMLO-511 PO; +BRIM15OS OU; -CINA30 PO; +FOLI1CAP2 PO; -INSNOV SQ; +INSU100I3 SQ; -LISI-662 PO; +SENN-175 PO; +SODI650T PO; +TIMO10DR28 OU
[2018-03-20 13:00] VITALS: BP 150/60
== END | disposition home or self-care (01) ==
LOC: SRCNTR 12:06
PROVIDERS: ATTEND Internal Medicine Critical Care Medicine
DX: G47.33 Obstructive sleep apnea (adult) (pediatric) (principal); I34.0 Nonrheumatic mitral (valve) insufficiency; J90 Pleural effusion, not elsewhere classified; I13.2 Hypertensive heart and chronic kidney disease with heart failure and with stage 5 chronic kidney disease, or end stage renal disease; N18.6 End stage renal disease; I50.30 Unspecified diastolic (congestive) heart failure
CPT/HCPCS: G0463

== ENCOUNTER → 2018-03-29 | Outpatient (CLI) | payer MEDICARE, OTHER ==
[~2018-03-29] VITALS: Ht 139.7 cm; Wt 80.0 kg
[2018-03-29 11:11] VITALS: BP 135/76
== END | disposition home or self-care (01) ==
LOC: SRCNTR 10:51
PROVIDERS: ATTEND Internal Medicine Cardiovascular Disease
DX: I25.10 Atherosclerotic heart disease of native coronary artery without angina pectoris (principal); I12.0 Hypertensive chronic kidney disease with stage 5 chronic kidney disease or end stage renal disease; E11.22 Type 2 diabetes mellitus with diabetic chronic kidney disease; N18.6 End stage renal disease; E78.5 Hyperlipidemia, unspecified; G47.30 Sleep apnea, unspecified; J44.9 Chronic obstructive pulmonary disease, unspecified; Z79.4 Long term (current) use of insulin; Z99.2 Dependence on renal dialysis
CPT/HCPCS: G0463

== ENCOUNTER → 2018-05-29 | Outpatient (CLI) | payer MEDICARE, OTHER ==
[~2018-05-29] VITALS: Ht 137.2 cm; Wt 79.0 kg
[~2018-05-29] MED LIST changes: -FOLI1CAP2 PO; -PANT40TA25 PO
[2018-05-29 10:55] VITALS: BP 179/65
== END | disposition home or self-care (01) ==
LOC: SRCNTR 10:52
PROVIDERS: ATTEND Internal Medicine Cardiovascular Disease
DX: I11.0 Hypertensive heart disease with heart failure (principal); E11.22 Type 2 diabetes mellitus with diabetic chronic kidney disease; N18.9 Chronic kidney disease, unspecified; I25.10 Atherosclerotic heart disease of native coronary artery without angina pectoris; J44.9 Chronic obstructive pulmonary disease, unspecified; E78.5 Hyperlipidemia, unspecified
CPT/HCPCS: G0463

== ENCOUNTER → 2018-06-09 | Outpatient (CLI) | payer MEDICARE, OTHER | END | disposition home or self-care (01) | LOC: RADPV 13:21 | PROVIDERS: ATTEND Internal Medicine | DX: M17.12 Unilateral primary osteoarthritis, left knee (principal); M79.89 Other specified soft tissue disorders; M47.817 Spondylosis without myelopathy or radiculopathy, lumbosacral region; M54.2 Cervicalgia | CPT/HCPCS: 72040; 72100; 73502; 73503 ==

== ENCOUNTER 2018-07-25 15:53 | Inpatient (IN) | payer MEDICARE, OTHER ==
[~2018-07-25] VITALS: Ht 144.8 cm; Wt 82.2 kg
[2018-07-25 16:19] LABS: GLUCOSE,POINT OF CARE 109 MG/DL (70-110)
[2018-07-25 16:27] LABS: BASOPHILS % (AUTO) 0.4 % (0.0-2.0); EOSINOPHILS % (AUTO) 1.3 % (1.0-6.0); HEMATOCRIT 32.5 % (36-46); HEMOGLOBIN 10.6 g/dL (12.0-16.0); LYMPHOCYTES % (AUTO) 6.3 % (22.0-44.0); MEAN CORPUSCULAR HEMOGLOBIN 32.4 pg (26.0-34.0); MEAN CORPUSCULAR HGB CONC 32.7 G/dL (31.0-37.0); MEAN CORPUSCULAR VOLUME 99 fL (80-100); MONOCYTES # (AUTO) 0.6 K/uL (0.1-1.0); MONOCYTES % (AUTO) 3.6 % (2.0-9.0); NEUTROPHILS # (AUTO) 13.6 K/uL (1.8-7.7); PLATELET COUNT (AUTO) 183 K/uL (150-450); RED BLOOD CELL COUNT(AUTO) 3.28 MIL/uL (4.00-5.20); RED CELL DISTRIBUTION WIDTH 14.7 % (11.5-14.5)
[2018-07-25 16:28] LABS: NEUTROPHILS % (AUTO) 88.4 % (40.0-70.0)
[2018-07-25] MEDS ORDERED: IPRATROPIUM BROMIDE 0.5 MG/2.5 ML NEB SOLUTION NEB ONE (16:30)
[2018-07-25] MEDS ORDERED: ALBUTEROL SULFATE 2.5 MG/0.5 ML NEB SOLUTION NEB ONE (16:30)
[2018-07-25 16:47] LABS: ALBUMIN 2.6 g/dL (3.4-5.0); BILIRUBIN,TOTAL 0.4 mg/dL (0.1-1.0); CALCIUM, TOTAL 9.2 mg/dL (8.8-10.5); CREATININE 7.66 mg/dL (0.60-1.30); TOTAL PROTEIN, SERUM 7.3 g/dL (6.4-8.2)
[2018-07-25 16:54] LABS: PLATELET MORPHOLOGY COMMENT NORMAL; POTASSIUM 7.3 mmol/L (3.5-5.1)
[2018-07-25] MEDS ORDERED: INSULIN REGULAR, HUMAN 100 UNITS/ML IVP ONE (17:15)
[2018-07-25] MEDS ORDERED: FUROSEMIDE 40 MG/4 ML VIAL IVP ONE (17:15)
[2018-07-25] MEDS ORDERED: SODIUM BICARBONATE [ADULT] 8.4% 50 MEQ/50 ML SYRINGE IVP ONE (17:15)
[2018-07-25] MEDS ORDERED: SODIUM POLYSTYRENE SULFONATE 15 GM/60 ML SUSPENSION BOTTLE PO ONE (17:15)
[2018-07-25] MEDS ORDERED: DEXTROSE 50%-WATER 25 GM/50 ML SYRINGE IVP ONE (17:15)
[2018-07-25] MEDS ORDERED: ACETAMINOPHEN 500 MG TABLET PO ONE (17:15)
[2018-07-25] MEDS ORDERED: AZITHROMYCIN 500 MG/NS 250 ML IV ONE (17:45)
[2018-07-25] MEDS ORDERED: CefTRIAXone SODIUM 1 GM in DEXTROSE 5%-WATER 10 ML IV ONE (17:45)
[2018-07-25] MEDS ORDERED: CALCIUM GLUCONATE 100 MG/ML 10 ML IVP ONE (19:15)
[2018-07-25] MEDS ORDERED: 0.9% SODIUM CHLORIDE 10 ML SYRINGE IVP PRN (20:15)
[2018-07-25] MEDS ORDERED: ACETAMINOPHEN 325 MG TABLET PO PRN (20:15)
[2018-07-25] MEDS ORDERED: ONDANSETRON HCL 4 MG/2 ML VIAL IVP PRN (20:15)
[2018-07-25 20:28] VITALS: BP 137/67
[2018-07-25] MEDS ORDERED: MANNITOL 25%-12.5 GM/50 ML VIAL IVP PRN (22:00)
[2018-07-26] VITALS (7 sets, daily range): BP systolic 90–140; BP diastolic 31–58
[2018-07-26] MEDS ORDERED: NITR.4 SL (01:25)
[2018-07-26] MEDS ORDERED: DEXTROSE 50%-WATER 25 GM/50 ML SYRINGE IVP PRN (02:15)
[2018-07-26] MEDS ORDERED: MAGNESIUM HYDROXIDE SUSPENSION 30 ML UDCUP PO PRN (07:00)
[2018-07-26] MEDS ORDERED: ALBUTEROL SULFATE 2.5 MG/0.5 ML NEB SOLUTION NEB PRN (07:00)
[2018-07-26] MEDS ORDERED: MORPHINE SULFATE 2 MG/ML SYRINGE IVP PRN (07:00)
[2018-07-26] MEDS ORDERED: IPRATROPIUM BROMIDE 0.5 MG/2.5 ML NEB SOLUTION NEB PRN (07:00)
[2018-07-26] MEDS ORDERED: ZOLPIDEM TARTRATE 5 MG TABLET PO PRN (07:00)
[2018-07-26] MEDS ORDERED: BISACODYL 10 MG RECTAL RECTAL SUPPOSITORY PR PRN (07:00)
[2018-07-26] MEDS: PANTOPRAZOLE SODIUM 40 MG/VIAL IVP SCH (08:55)
[2018-07-26] MEDS: DOCUSATE SODIUM 100 MG CAPSULE PO SCH ×2 (08:55→21:09)
[2018-07-26] MEDS: FUROSEMIDE 40 MG TABLET PO SCH ×2 (08:55→21:09)
[2018-07-26] MEDS: CARVEDILOL 6.25 MG TABLET PO SCH ×2 (08:55→21:00)
[2018-07-26] MEDS: HEPARIN SODIUM,PORCINE 5,000 UNITS/ML VIAL SQ SCH ×2 (08:55→18:13)
[2018-07-26] MEDS: AmLODIPine BESYLATE 5 MG TABLET PO SCH ×2 (08:56→21:00)
[2018-07-26] MEDS: CLOPIDOGREL BISULFATE 75 MG TABLET PO SCH (08:56)
[2018-07-26] MEDS: GABAPENTIN 300 MG CAPSULE PO SCH ×3 (08:56→21:08)
[2018-07-26] MEDS: CHOLECALCIFEROL (VIT D3) 1,000 UNITS TABLET PO SCH (08:56)
[2018-07-26 09:49] LABS: BASOPHILS % (AUTO) 0.4 % (0.0-2.0); EOSINOPHILS % (AUTO) 1.4 % (1.0-6.0); HEMATOCRIT 30.8 % (36-46); HEMOGLOBIN 10.4 g/dL (12.0-16.0); LYMPHOCYTES # (AUTO) 0.7 K/uL (1.0-4.8); LYMPHOCYTES % (AUTO) 7.8 % (22.0-44.0); MEAN CORPUSCULAR HEMOGLOBIN 33.5 pg (26.0-34.0); MEAN CORPUSCULAR HGB CONC 33.6 G/dL (31.0-37.0); MEAN CORPUSCULAR VOLUME 100 fL (80-100); MONOCYTES # (AUTO) 0.5 K/uL (0.1-1.0); NEUTROPHILS # (AUTO) 8.1 K/uL (1.8-7.7); PLATELET COUNT (AUTO) 155 K/uL (150-450); RED BLOOD CELL COUNT(AUTO) 3.09 MIL/uL (4.00-5.20); RED CELL DISTRIBUTION WIDTH 14.6 % (11.5-14.5)
[2018-07-26 09:55] LABS: NEUTROPHILS % (AUTO) 85.4 % (40.0-70.0)
[2018-07-26 10:09] LABS: ALBUMIN 2.4 g/dL (3.4-5.0); BILIRUBIN,TOTAL 0.3 mg/dL (0.1-1.0); CALCIUM, TOTAL 8.7 mg/dL (8.8-10.5); CREATININE 4.4 mg/dL (0.60-1.30); MAGNESIUM 1.7 mg/dL (1.80-2.40); PHOSPHORUS 8.5 mg/dL (2.5-4.9); POTASSIUM 4.6 mmol/L (3.5-5.1)
[2018-07-26] MEDS ORDERED: SODIUM CHLORIDE 0.9% 1,000 ML IV ONE ×2 (13:36→17:53)
[2018-07-26] MEDS ORDERED: SODIUM CHLORIDE 0.9% 250 ML IV ONE ×3 (17:18→19:15)
[2018-07-26] MEDS: ONDANSETRON HCL 4 MG/2 ML VIAL IVP PRN (17:27)
[2018-07-26] MEDS: CefTRIAXone SODIUM 1 GM in DEXTROSE 5%-WATER 10 ML IV SCH (17:31)
[2018-07-26] MEDS: AZITHROMYCIN 500 MG/NS 250 ML IV SCH (18:17)
[2018-07-26 20:17] LABS: CALCIUM, TOTAL 8.2 mg/dL (8.8-10.5); CREATININE 3.07 mg/dL (0.60-1.30); POTASSIUM 4.4 mmol/L (3.5-5.1)
[2018-07-26] MEDS: INSULIN LISPRO 100 UNITS/ML SQ PRN (21:23)
[2018-07-27] VITALS: BP 119/50
[2018-07-27] MEDS: HEPARIN SODIUM,PORCINE 5,000 UNITS/ML VIAL SQ SCH ×3 (00:28→16:11)
[2018-07-27 04:00] VITALS: BP 124/49
[2018-07-27 07:31] LABS: CALCIUM, TOTAL 8.3 mg/dL (8.8-10.5); CREATININE 4.09 mg/dL (0.60-1.30); MAGNESIUM 1.7 mg/dL (1.80-2.40); POTASSIUM 4.5 mmol/L (3.5-5.1)
[2018-07-27 08:00] VITALS: BP 127/93
[2018-07-27 08:00] LABS: PHOSPHORUS 9.9 mg/dL (2.5-4.9)
[2018-07-27] MEDS: AmLODIPine BESYLATE 5 MG TABLET PO SCH ×2 (09:00→21:00)
[2018-07-27] MEDS: CARVEDILOL 6.25 MG TABLET PO SCH ×2 (09:00→21:00)
[2018-07-27] MEDS: DOCUSATE SODIUM 100 MG CAPSULE PO SCH ×2 (09:03→21:00)
[2018-07-27] MEDS: FUROSEMIDE 40 MG TABLET PO SCH (09:04)
[2018-07-27] MEDS: CLOPIDOGREL BISULFATE 75 MG TABLET PO SCH (09:04)
[2018-07-27] MEDS: GABAPENTIN 300 MG CAPSULE PO SCH (09:04)
[2018-07-27] MEDS: CHOLECALCIFEROL (VIT D3) 1,000 UNITS TABLET PO SCH (09:04)
[2018-07-27] MEDS: PANTOPRAZOLE SODIUM 40 MG/VIAL IVP SCH (09:06)
[2018-07-27 10:14] LABS: GLUCOMETER DEV NAME(LOC) 5N 1P; GLUCOSE,POINT OF CARE 147 MG/DL (70-110)
[2018-07-27 10:14] LABS: GLUCOMETER DEV NAME(LOC) 5N 1P; GLUCOSE,POINT OF CARE 182 MG/DL (70-110)
[2018-07-27 10:21] LABS: GLUCOMETER DEV NAME(LOC) 5N 2S; GLUCOSE,POINT OF CARE 112 MG/DL (70-110)
[2018-07-27 10:21] LABS: GLUCOMETER DEV NAME(LOC) 5N 2S; GLUCOSE,POINT OF CARE 105 MG/DL (70-110)
[2018-07-27] MEDS ORDERED: DOXERCALCIFEROL 4 MCG/2 ML VIAL IVP PRN (11:45)
[2018-07-27] MEDS: INSULIN LISPRO 100 UNITS/ML SQ PRN ×2 (11:54→17:27)
[2018-07-27 12:00] VITALS: BP 98/47
[2018-07-27] MEDS: -PHARMACY NOTE- MISC SCH (12:00)
[2018-07-27] MEDS: CALCIUM ACETATE 667 MG CAPSULE PO SCH ×3 (12:49→18:30)
[2018-07-27 16:00] VITALS: BP 99/47
[2018-07-27] MEDS ORDERED: SODIUM CHLORIDE 0.9% 250 ML IV ONE (16:07)
[2018-07-27] MEDS: CefTRIAXone SODIUM 1 GM in DEXTROSE 5%-WATER 10 ML IV SCH (16:13)
[2018-07-27] MEDS: AZITHROMYCIN 500 MG/NS 250 ML IV SCH (17:25)
[2018-07-27] MEDS: ONDANSETRON HCL 4 MG/2 ML VIAL IVP PRN (17:30)
[2018-07-27 20:00] VITALS: BP 127/46
[2018-07-28] VITALS: BP 127/49
[2018-07-28] MEDS: HEPARIN SODIUM,PORCINE 5,000 UNITS/ML VIAL SQ SCH ×3 (00:10→15:56)
[2018-07-28 04:00] VITALS: BP 118/51
[2018-07-28] MEDS ORDERED: SODIUM CHLORIDE 0.9% 2,000 ML IV ONE (05:01)
[2018-07-28 05:22] LABS: CALCIUM, TOTAL 8.6 mg/dL (8.8-10.5); CREATININE 6.21 mg/dL (0.60-1.30); POTASSIUM 4.9 mmol/L (3.5-5.1)
[2018-07-28 05:33] LABS: PHOSPHORUS 10.9 mg/dL (2.5-4.9)
[2018-07-28] MEDS: DOCUSATE SODIUM 100 MG CAPSULE PO SCH ×2 (07:47→21:00)
[2018-07-28] MEDS: PANTOPRAZOLE SODIUM 40 MG/VIAL IVP SCH (07:47)
[2018-07-28] MEDS: CLOPIDOGREL BISULFATE 75 MG TABLET PO SCH (07:48)
[2018-07-28 07:55] LABS: MAGNESIUM 1.9 mg/dL (1.80-2.40)
[2018-07-28 08:00] VITALS: BP 116/59
[2018-07-28] MEDS: CARVEDILOL 6.25 MG TABLET PO SCH ×2 (09:00→21:00)
[2018-07-28] MEDS: AmLODIPine BESYLATE 5 MG TABLET PO SCH ×2 (09:00→21:00)
[2018-07-28] MEDS: -PHARMACY NOTE- MISC SCH (09:49)
[2018-07-28 09:52] LABS: GLUCOSE,POINT OF CARE 139 MG/DL (70-110)
[2018-07-28 09:52] LABS: GLUCOSE,POINT OF CARE 163 MG/DL (70-110)
[2018-07-28 09:52] LABS: GLUCOSE,POINT OF CARE 157 MG/DL (70-110)
[2018-07-28 11:15] LABS: BASOPHILS % (AUTO) 0.1 % (0.0-2.0); EOSINOPHILS % (AUTO) 0 % (1.0-6.0); HEMATOCRIT 32.9 % (36-46); HEMOGLOBIN 10.8 g/dL (12.0-16.0); LYMPHOCYTES # (AUTO) 0.3 K/uL (1.0-4.8); LYMPHOCYTES % (AUTO) 1.7 % (22.0-44.0); MEAN CORPUSCULAR HEMOGLOBIN 32.6 pg (26.0-34.0); MEAN CORPUSCULAR HGB CONC 32.6 G/dL (31.0-37.0); MEAN CORPUSCULAR VOLUME 100 fL (80-100); MONOCYTES # (AUTO) 0.8 K/uL (0.1-1.0); MONOCYTES % (AUTO) 4.5 % (2.0-9.0); NEUTROPHILS # (AUTO) 17.7 K/uL (1.8-7.7); PLATELET COUNT (AUTO) 168 K/uL (150-450); RED CELL DISTRIBUTION WIDTH 14.8 % (11.5-14.5)
[2018-07-28 11:17] LABS: NEUTROPHILS % (AUTO) 93.7 % (40.0-70.0)
[2018-07-28 11:34] LABS: GLUCOSE,POINT OF CARE 153 MG/DL (70-110)
[2018-07-28 11:34] LABS: GLUCOSE,POINT OF CARE 82 MG/DL (70-110)
[2018-07-28 11:34] LABS: GLUCOSE,POINT OF CARE 149 MG/DL (70-110)
[2018-07-28 12:00] VITALS: BP 116/56
[2018-07-28] MEDS: INSULIN LISPRO 100 UNITS/ML SQ PRN ×2 (12:09→17:53)
[2018-07-28] MEDS ORDERED: VANCOMYCIN HCL 1 GM/D5% WATER 200 ML IV PRN (15:00)
[2018-07-28] MEDS: EPOETIN ALFA 10,000 UNITS/ML 2 ML VIAL SQ SCH (15:56)
[2018-07-28 16:00] VITALS: BP 119/47
[2018-07-28] MEDS ORDERED: VANCOMYCIN HCL 1.25 GM in DEXTROSE 5%-WATER 250 ML IV ONE (16:00)
[2018-07-28] MEDS: CALCIUM ACETATE 667 MG CAPSULE PO SCH (17:30)
[2018-07-28] MEDS: AZITHROMYCIN 500 MG/NS 250 ML IV SCH (17:52)
[2018-07-28] MEDS: CefTRIAXone SODIUM 1 GM in DEXTROSE 5%-WATER 10 ML IV SCH (17:52)
[2018-07-28] MEDS: ONDANSETRON HCL 4 MG/2 ML VIAL IVP PRN (18:26)
[2018-07-28 20:00] VITALS: BP 131/54
[2018-07-28] MEDS ORDERED: GABAPENTIN 300 MG CAPSULE PO SCH (22:00)
[2018-07-29] VITALS: BP 144/65
[2018-07-29] MEDS: HEPARIN SODIUM,PORCINE 5,000 UNITS/ML VIAL SQ SCH ×3 (00:01→18:00)
[2018-07-29 04:00] VITALS: BP 125/50
[2018-07-29 04:51] LABS: BASOPHILS % (AUTO) 0.6 % (0.0-2.0); EOSINOPHILS % (AUTO) 0.3 % (1.0-6.0); HEMATOCRIT 31.2 % (36-46); HEMOGLOBIN 10.3 g/dL (12.0-16.0); LYMPHOCYTES # (AUTO) 0.9 K/uL (1.0-4.8); LYMPHOCYTES % (AUTO) 5.9 % (22.0-44.0); MEAN CORPUSCULAR HGB CONC 33.1 G/dL (31.0-37.0); MEAN CORPUSCULAR VOLUME 100 fL (80-100); MONOCYTES # (AUTO) 0.9 K/uL (0.1-1.0); NEUTROPHILS # (AUTO) 13.7 K/uL (1.8-7.7); PLATELET COUNT (AUTO) 179 K/uL (150-450); RED BLOOD CELL COUNT(AUTO) 3.13 MIL/uL (4.00-5.20); RED CELL DISTRIBUTION WIDTH 14.3 % (11.5-14.5)
[2018-07-29 05:00] LABS: NEUTROPHILS % (AUTO) 87.2 % (40.0-70.0)
[2018-07-29 05:01] LABS: CALCIUM, TOTAL 8.8 mg/dL (8.8-10.5); CREATININE 5.02 mg/dL (0.60-1.30); POTASSIUM 4.9 mmol/L (3.5-5.1)
[2018-07-29 08:00] VITALS: BP 125/52
[2018-07-29] MEDS: CALCIUM ACETATE 667 MG CAPSULE PO SCH ×3 (08:28→17:30)
[2018-07-29] MEDS: CLOPIDOGREL BISULFATE 75 MG TABLET PO SCH (09:00)
[2018-07-29] MEDS: CARVEDILOL 6.25 MG TABLET PO SCH ×2 (09:00→21:00)
[2018-07-29] MEDS: -PHARMACY NOTE- MISC SCH (09:00)
[2018-07-29] MEDS: AmLODIPine BESYLATE 5 MG TABLET PO SCH ×2 (09:00→21:00)
[2018-07-29] MEDS: DOCUSATE SODIUM 100 MG CAPSULE PO SCH ×2 (09:00→21:00)
[2018-07-29] MEDS: PANTOPRAZOLE SODIUM 40 MG/VIAL IVP SCH (09:00)
[2018-07-29 12:00] VITALS: BP 132/55
[2018-07-29 16:00] VITALS: BP 156/49
[2018-07-29] MEDS: CefTRIAXone SODIUM 1 GM in DEXTROSE 5%-WATER 10 ML IV SCH (18:00)
[2018-07-29] MEDS: AZITHROMYCIN 500 MG/NS 250 ML IV SCH (19:45)
[2018-07-29 20:00] VITALS: BP 118/50
[2018-07-29 20:04] LABS: GLUCOSE,POINT OF CARE 145 MG/DL (70-110)
[2018-07-29 20:04] LABS: GLUCOSE,POINT OF CARE 130 MG/DL (70-110)
[2018-07-29 20:04] LABS: GLUCOSE,POINT OF CARE 86 MG/DL (70-110)
[2018-07-29 20:04] LABS: GLUCOSE,POINT OF CARE 170 MG/DL (70-110)
[2018-07-29 20:04] LABS: GLUCOSE,POINT OF CARE 114 MG/DL (70-110)
[2018-07-29 20:32] LABS: SOURCE, BLOOD GAS ARTERIAL; TEMPERATURE, FAHRENHEIT, BG 98.3 FAHREN (96.0-98.6)
[2018-07-29 20:39] LABS: ABG BASE EXCESS -4.5 mmol/L (-2.0-3.0); ABG CARBOXYHEMOGLOBIN 0.9 % (0.0-1.5); ABG HCO3 20.5 mmol/L (22.0-26.0); ABG METHEMOGLOBIN 0.3 % (0.0-1.5); ABG OXYGEN CONTENT 13.3 mL/dL (15.0-23.0); ABG OXYHEMOGLOBIN 92.9 % (94.0-100.0); ABG PCO2 56 mmHg (35-45); ABG PH 7.235 (7.35-7.450); ABG TOTAL HEMOGLOBIN 10.1 G/dL (12.0-18.0); PO2, ARTERIAL BG 79.2 mmHg (75.0-83.0)
[2018-07-29 20:40] LABS: O2 DEVICE,BLOOD GAS CANNULA (ROOM AIR); SITE, BLOOD GAS RT BRACHIAL
[2018-07-30] VITALS (7 sets, daily range): BP systolic 103–148; BP diastolic 22–63
[2018-07-30] MEDS: HEPARIN SODIUM,PORCINE 5,000 UNITS/ML VIAL SQ SCH ×4 (00:06→23:27)
[2018-07-30] MEDS: ALBUTEROL SULFATE 2.5 MG/0.5 ML NEB SOLUTION NEB SCH ×4 (02:21→19:45)
[2018-07-30] MEDS: IPRATROPIUM BROMIDE 0.5 MG/2.5 ML NEB SOLUTION NEB SCH ×4 (02:21→19:45)
[2018-07-30 04:58] LABS: BASOPHILS % (AUTO) 0.6 % (0.0-2.0); HEMATOCRIT 31.6 % (36-46); HEMOGLOBIN 10.5 g/dL (12.0-16.0); MEAN CORPUSCULAR HGB CONC 33.2 G/dL (31.0-37.0); MEAN CORPUSCULAR VOLUME 99 fL (80-100); MONOCYTES # (AUTO) 0.9 K/uL (0.1-1.0); MONOCYTES % (AUTO) 5.9 % (2.0-9.0); NEUTROPHILS # (AUTO) 12.6 K/uL (1.8-7.7); NEUTROPHILS % (AUTO) 85.5 % (40.0-70.0); PLATELET COUNT (AUTO) 186 K/uL (150-450); RED BLOOD CELL COUNT(AUTO) 3.18 MIL/uL (4.00-5.20); RED CELL DISTRIBUTION WIDTH 14.5 % (11.5-14.5)
[2018-07-30 05:09] LABS: CALCIUM, TOTAL 8.7 mg/dL (8.8-10.5); CREATININE 6.85 mg/dL (0.60-1.30); POTASSIUM 4.2 mmol/L (3.5-5.1); VANCOMYCIN,RANDOM 18.4 mcg/mL (25.0-50.0)
[2018-07-30] MEDS: AmLODIPine BESYLATE 5 MG TABLET PO SCH ×2 (07:19→20:44)
[2018-07-30] MEDS: DOCUSATE SODIUM 100 MG CAPSULE PO SCH ×2 (07:20→20:44)
[2018-07-30] MEDS: CARVEDILOL 6.25 MG TABLET PO SCH ×2 (07:20→20:44)
[2018-07-30] MEDS: CALCIUM ACETATE 667 MG CAPSULE PO SCH ×3 (08:00→16:59)
[2018-07-30] MEDS: CLOPIDOGREL BISULFATE 75 MG TABLET PO SCH (08:09)
[2018-07-30] MEDS: PANTOPRAZOLE SODIUM 40 MG/VIAL IVP SCH (08:10)
[2018-07-30 08:25] LABS: C.DIFF GDH ANTIGEN, Stool Negative (Negative); C.DIFF TOXINS A&B, Stool Negative (Negative)
[2018-07-30] MEDS: -PHARMACY NOTE- MISC SCH (09:00)
[2018-07-30 09:14] LABS: GLUCOSE,POINT OF CARE 102 MG/DL (70-110)
[2018-07-30] MEDS ORDERED: VANCOMYCIN HCL 1 GM/D5% WATER 200 ML IV ONE (10:00)
[2018-07-30] MEDS ORDERED: SODIUM CHLORIDE 0.9% 500 ML IV ONE (17:05)
[2018-07-30] MEDS: CefTRIAXone SODIUM 1 GM in DEXTROSE 5%-WATER 10 ML IV SCH (17:08)
[2018-07-30] MEDS: AZITHROMYCIN 500 MG/NS 250 ML IV SCH (17:08)
[2018-07-30 17:44] LABS: GLUCOSE,POINT OF CARE 147 MG/DL (70-110)
[2018-07-30] MEDS ORDERED: SODIUM CHLORIDE 0.9% 1,000 ML IV ONE (18:27)
[2018-07-30] MEDS: ACETAMINOPHEN 325 MG TABLET PO PRN (18:29)
[2018-07-31] VITALS: BP 85/41
[2018-07-31] MEDS ORDERED: AMIODARONE HCL 360 MG in DEXTROSE 5%-WATER 242.8 ML IV ONE (00:30)
[2018-07-31] MEDS: IPRATROPIUM BROMIDE 0.5 MG/2.5 ML NEB SOLUTION NEB SCH ×4 (02:15→19:34)
[2018-07-31] MEDS: ALBUTEROL SULFATE 2.5 MG/0.5 ML NEB SOLUTION NEB SCH ×4 (02:15→19:34)
[2018-07-31 04:00] VITALS: BP 128/65
[2018-07-31 04:39] LABS: BASOPHILS % (AUTO) 0.3 % (0.0-2.0); EOSINOPHILS % (AUTO) 0 % (1.0-6.0); LYMPHOCYTES # (AUTO) 0.4 K/uL (1.0-4.8); LYMPHOCYTES % (AUTO) 1.9 % (22.0-44.0); MEAN CORPUSCULAR HEMOGLOBIN 32.7 pg (26.0-34.0); MEAN CORPUSCULAR HGB CONC 33.4 G/dL (31.0-37.0); MEAN CORPUSCULAR VOLUME 98 fL (80-100); MONOCYTES # (AUTO) 0.8 K/uL (0.1-1.0); MONOCYTES % (AUTO) 3.3 % (2.0-9.0); NEUTROPHILS # (AUTO) 22.4 K/uL (1.8-7.7); PLATELET COUNT (AUTO) 197 K/uL (150-450); RED BLOOD CELL COUNT(AUTO) 3.37 MIL/uL (4.00-5.20); RED CELL DISTRIBUTION WIDTH 14.3 % (11.5-14.5)
[2018-07-31 04:50] LABS: CALCIUM, TOTAL 9.1 mg/dL (8.8-10.5); CREATININE 3.68 mg/dL (0.60-1.30); POTASSIUM 3.6 mmol/L (3.5-5.1)
[2018-07-31 05:09] LABS: NEUTROPHILS % (AUTO) 94.5 % (40.0-70.0)
[2018-07-31] MEDS: INSULIN LISPRO 100 UNITS/ML SQ PRN ×3 (05:37→21:15)
[2018-07-31] MEDS ORDERED: AMIODARONE HCL 540 MG in DEXTROSE 5%-WATER 239.2 ML IV ONE (06:30)
[2018-07-31 08:00] VITALS: BP 145/60
[2018-07-31] MEDS: CALCIUM ACETATE 667 MG CAPSULE PO SCH ×2 (08:00→11:25)
[2018-07-31] MEDS: CARVEDILOL 6.25 MG TABLET PO SCH ×2 (08:28→21:00)
[2018-07-31] MEDS: AmLODIPine BESYLATE 5 MG TABLET PO SCH ×2 (08:28→21:00)
[2018-07-31] MEDS: DOCUSATE SODIUM 100 MG CAPSULE PO SCH ×2 (08:28→21:00)
[2018-07-31] MEDS: CLOPIDOGREL BISULFATE 75 MG TABLET PO SCH (08:29)
[2018-07-31] MEDS: HEPARIN SODIUM,PORCINE 5,000 UNITS/ML VIAL SQ SCH ×3 (08:56→23:52)
[2018-07-31] MEDS: PANTOPRAZOLE SODIUM 40 MG/VIAL IVP SCH (08:56)
[2018-07-31] MEDS: EPOETIN ALFA 10,000 UNITS/ML 2 ML VIAL SQ SCH (08:57)
[2018-07-31 08:58] LABS: ABG BASE EXCESS -0.8 mmol/L (-2.0-3.0); ABG CARBOXYHEMOGLOBIN 0.7 % (0.0-1.5); ABG HCO3 23.5 mmol/L (22.0-26.0); ABG METHEMOGLOBIN 0.3 % (0.0-1.5); ABG OXYGEN CONTENT 15.1 mL/dL (15.0-23.0); ABG OXYGEN SATURATION 98.2 % (95.0-98.0); ABG OXYHEMOGLOBIN 97.2 % (94.0-100.0); ABG PCO2 50 mmHg (35-45); ABG TOTAL HEMOGLOBIN 10.9 G/dL (12.0-18.0); PO2, ARTERIAL BG 130.5 mmHg (75.0-83.0); SOURCE, BLOOD GAS ARTERIAL; TEMPERATURE, FAHRENHEIT, BG 98.6 FAHREN (96.0-98.6)
[2018-07-31 08:59] LABS: O2 DEVICE,BLOOD GAS BIPAP (ROOM AIR); SITE, BLOOD GAS LFT RADIAL
[2018-07-31 09:00] LABS: PRESSURE SUPPORT, BG 10 cm H2O; SPONTANEOUS VT, BG 426 ml
[2018-07-31 12:00] VITALS: BP 143/56
[2018-07-31] MEDS: AMIODARONE HCL 200 MG TABLET PO SCH ×3 (12:56→21:14)
[2018-07-31] MEDS: ACETAMINOPHEN 325 MG TABLET PO PRN ×2 (12:56→17:43)
[2018-07-31] MEDS: -PHARMACY NOTE- MISC SCH (15:45)
[2018-07-31 16:00] VITALS: BP 124/60
[2018-07-31] MEDS ORDERED: AMIODARONE HCL 200 MG TABLET PO SCH (16:00)
[2018-07-31] MEDS: AZITHROMYCIN 500 MG/NS 250 ML IV SCH (17:04)
[2018-07-31] MEDS: CefTRIAXone SODIUM 1 GM in DEXTROSE 5%-WATER 10 ML IV SCH (17:04)
[2018-07-31] MEDS: SEVELAMER CARBONATE 800 MG POWDER PACKET NG SCH ×2 (17:08→21:14)
[2018-07-31] MEDS: MetroNIDAZOLE 500 MG TABLET PO SCH ×2 (18:56→23:52)
[2018-07-31 19:04] LABS: GLUCOSE,POINT OF CARE 169 MG/DL (70-110)
[2018-07-31 19:04] LABS: GLUCOSE,POINT OF CARE 175 MG/DL (70-110)
[2018-07-31 20:00] VITALS: BP 129/57
[2018-07-31] MEDS: DEXTROSE 5% IV SCH (20:13)
[2018-07-31] MEDS: ACYCLOVIR IV SCH (20:13)
[2018-07-31] MEDS: WATER IV SCH (20:13)
[2018-08-01] VITALS: BP 123/52
[2018-08-01] MEDS ORDERED: AMIODARONE HCL 750 MG in DEXTROSE 5%-WATER 485 ML IV SCH (00:30)
[2018-08-01] MEDS: ALBUTEROL SULFATE 2.5 MG/0.5 ML NEB SOLUTION NEB SCH ×4 (02:47→19:32)
[2018-08-01] MEDS: IPRATROPIUM BROMIDE 0.5 MG/2.5 ML NEB SOLUTION NEB SCH ×4 (02:47→19:32)
[2018-08-01 04:00] VITALS: BP 145/54
[2018-08-01] MEDS ORDERED: SODIUM CHLORIDE 0.9% 100 ML ONE (04:50)
[2018-08-01 05:29] LABS: BASOPHILS % (AUTO) 0.4 % (0.0-2.0); EOSINOPHILS % (AUTO) 0.6 % (1.0-6.0); HEMOGLOBIN 10.1 g/dL (12.0-16.0); LYMPHOCYTES # (AUTO) 0.8 K/uL (1.0-4.8); LYMPHOCYTES % (AUTO) 6.2 % (22.0-44.0); MEAN CORPUSCULAR HEMOGLOBIN 33.3 pg (26.0-34.0); MEAN CORPUSCULAR HGB CONC 33.8 G/dL (31.0-37.0); MEAN CORPUSCULAR VOLUME 99 fL (80-100); MONOCYTES # (AUTO) 0.8 K/uL (0.1-1.0); MONOCYTES % (AUTO) 6.2 % (2.0-9.0); NEUTROPHILS # (AUTO) 11.3 K/uL (1.8-7.7); PLATELET COUNT (AUTO) 180 K/uL (150-450); RED BLOOD CELL COUNT(AUTO) 3.04 MIL/uL (4.00-5.20); RED CELL DISTRIBUTION WIDTH 14.4 % (11.5-14.5)
[2018-08-01] MEDS: INSULIN LISPRO 100 UNITS/ML SQ PRN ×4 (05:34→23:43)
[2018-08-01 05:39] LABS: NEUTROPHILS % (AUTO) 86.6 % (40.0-70.0)
[2018-08-01 05:43] LABS: CALCIUM, TOTAL 9.1 mg/dL (8.8-10.5); CREATININE 5.39 mg/dL (0.60-1.30); MAGNESIUM 1.8 mg/dL (1.80-2.40); PHOSPHORUS 6.9 mg/dL (2.5-4.9); POTASSIUM 4.2 mmol/L (3.5-5.1)
[2018-08-01] MEDS ORDERED: ALBUMIN HUMAN 25%-12.5GM/50ML IV BOTTLE IV ONE (07:00)
[2018-08-01 08:00] VITALS: BP 111/67
[2018-08-01] MEDS: HEPARIN SODIUM,PORCINE 5,000 UNITS/ML VIAL SQ SCH ×3 (08:08→23:42)
[2018-08-01] MEDS: CLOPIDOGREL BISULFATE 75 MG TABLET PO SCH (08:08)
[2018-08-01] MEDS: AMIODARONE HCL 200 MG TABLET PO SCH ×3 (08:08→21:00)
[2018-08-01] MEDS: VITAMIN B COMP/VIT C/FOLIC ACID CAPSULE PO SCH (08:08)
[2018-08-01] MEDS: MetroNIDAZOLE 500 MG TABLET PO SCH ×3 (08:08→23:42)
[2018-08-01] MEDS: SEVELAMER CARBONATE 800 MG POWDER PACKET NG SCH ×3 (08:09→21:00)
[2018-08-01] MEDS: PANTOPRAZOLE SODIUM 40 MG/VIAL IVP SCH (08:10)
[2018-08-01] MEDS: AmLODIPine BESYLATE 5 MG TABLET PO SCH ×2 (08:11→21:00)
[2018-08-01] MEDS: DOCUSATE SODIUM 100 MG CAPSULE PO SCH ×2 (08:11→21:00)
[2018-08-01] MEDS: CARVEDILOL 6.25 MG TABLET PO SCH ×2 (08:12→21:00)
[2018-08-01] MEDS ORDERED: ALBUMIN HUMAN 25%-25GM/100ML 100 ML IV PRN (10:15)
[2018-08-01 12:00] VITALS: BP 96/44
[2018-08-01] MEDS: CefTRIAXone SODIUM 1 GM in DEXTROSE 5%-WATER 10 ML IV SCH (15:44)
[2018-08-01] MEDS: -PHARMACY NOTE- MISC SCH (15:45)
[2018-08-01] MEDS: DOXERCALCIFEROL 4 MCG/2 ML VIAL IVP PRN (15:47)
[2018-08-01 16:00] VITALS: BP 106/40
[2018-08-01] MEDS: AZITHROMYCIN 500 MG/NS 250 ML IV SCH (17:43)
[2018-08-01] MEDS: DEXTROSE 5% IV SCH (19:34)
[2018-08-01] MEDS: WATER IV SCH (19:34)
[2018-08-01] MEDS: ACYCLOVIR IV SCH (19:34)
[2018-08-01 20:00] VITALS: BP 118/43
[2018-08-01 21:09] LABS: GLUCOSE,POINT OF CARE 181 MG/DL (70-110)
[2018-08-01 21:10] LABS: GLUCOSE,POINT OF CARE 245 MG/DL (70-110)
[2018-08-01 21:10] LABS: GLUCOSE,POINT OF CARE 175 MG/DL (70-110)
[2018-08-01 21:10] LABS: GLUCOSE,POINT OF CARE 180 MG/DL (70-110)
[2018-08-01 21:10] LABS: GLUCOSE,POINT OF CARE 236 MG/DL (70-110)
[2018-08-01 21:10] LABS: GLUCOSE,POINT OF CARE 147 MG/DL (70-110)
[2018-08-01 21:10] LABS: GLUCOSE,POINT OF CARE 170 MG/DL (70-110)
[2018-08-01 21:10] LABS: GLUCOSE,POINT OF CARE 149 MG/DL (70-110)
[2018-08-02] VITALS (7 sets, daily range): BP systolic 105–144; BP diastolic 38–69
[2018-08-02 00:53] LABS: GLUCOSE,POINT OF CARE 219 MG/DL (70-110)
[2018-08-02] MEDS: IPRATROPIUM BROMIDE 0.5 MG/2.5 ML NEB SOLUTION NEB SCH ×4 (02:28→19:25)
[2018-08-02] MEDS: ALBUTEROL SULFATE 2.5 MG/0.5 ML NEB SOLUTION NEB SCH ×4 (02:28→19:25)
[2018-08-02 04:53] LABS: CALCIUM, TOTAL 9.1 mg/dL (8.8-10.5); CREATININE 4.23 mg/dL (0.60-1.30); POTASSIUM 3.6 mmol/L (3.5-5.1); VANCOMYCIN,RANDOM 18.2 mcg/mL (25.0-50.0)
[2018-08-02] MEDS ORDERED: SODIUM CHLORIDE 0.9% 0 ML IV ONE (05:17)
[2018-08-02] MEDS: INSULIN LISPRO 100 UNITS/ML SQ PRN ×3 (05:52→23:54)
[2018-08-02 06:19] LABS: GLUCOSE,POINT OF CARE 245 MG/DL (70-110)
[2018-08-02 06:19] LABS: GLUCOSE,POINT OF CARE 181 MG/DL (70-110)
[2018-08-02] MEDS: AmLODIPine BESYLATE 5 MG TABLET PO SCH ×2 (08:57→20:23)
[2018-08-02] MEDS: MetroNIDAZOLE 500 MG TABLET PO SCH ×3 (09:02→23:52)
[2018-08-02] MEDS: VITAMIN B COMP/VIT C/FOLIC ACID CAPSULE PO SCH (09:02)
[2018-08-02] MEDS: PANTOPRAZOLE SODIUM 40 MG/VIAL IVP SCH (09:02)
[2018-08-02] MEDS: HEPARIN SODIUM,PORCINE 5,000 UNITS/ML VIAL SQ SCH ×3 (09:02→23:52)
[2018-08-02] MEDS: SEVELAMER CARBONATE 800 MG POWDER PACKET NG SCH ×3 (09:03→20:23)
[2018-08-02] MEDS: AMIODARONE HCL 200 MG TABLET PO SCH ×3 (09:03→20:23)
[2018-08-02] MEDS: DOCUSATE SODIUM 100 MG CAPSULE PO SCH ×3 (09:04→21:00)
[2018-08-02] MEDS: EPOETIN ALFA 10,000 UNITS/ML 2 ML VIAL SQ SCH (09:06)
[2018-08-02] MEDS: CARVEDILOL 6.25 MG TABLET PO SCH ×2 (09:09→20:23)
[2018-08-02] MEDS: CLOPIDOGREL BISULFATE 75 MG TABLET PO SCH (09:09)
[2018-08-02] MEDS: -PHARMACY NOTE- MISC SCH (09:11)
[2018-08-02] MEDS: HYDROCODONE/ACETAMINOPHEN 5-325 MG TABLET PO PRN (12:11)
[2018-08-02] MEDS: CefTRIAXone SODIUM 1 GM in DEXTROSE 5%-WATER 10 ML IV SCH (15:18)
[2018-08-02] MEDS ORDERED: SODIUM CHLORIDE 0.9% 250 ML IV ONE ×2 (15:42→20:22)
[2018-08-02] MEDS ORDERED: VANCOMYCIN HCL 1 GM/D5% WATER 200 ML IV ONE (17:00)
[2018-08-02] MEDS: AZITHROMYCIN 500 MG/NS 250 ML IV SCH (19:16)
[2018-08-02] MEDS: WATER IV SCH (20:23)
[2018-08-02] MEDS: DEXTROSE 5% IV SCH (20:23)
[2018-08-02] MEDS: ACYCLOVIR IV SCH (20:23)
[2018-08-03] VITALS (7 sets, daily range): BP systolic 107–154; BP diastolic 37–63
[2018-08-03 00:44] LABS: GLUCOSE,POINT OF CARE 228 MG/DL (70-110)
[2018-08-03 00:44] LABS: GLUCOSE,POINT OF CARE 195 MG/DL (70-110)
[2018-08-03] MEDS: ONDANSETRON HCL 4 MG/2 ML VIAL IVP PRN (00:48)
[2018-08-03] MEDS: IPRATROPIUM BROMIDE 0.5 MG/2.5 ML NEB SOLUTION NEB SCH ×4 (01:57→19:16)
[2018-08-03] MEDS: ALBUTEROL SULFATE 2.5 MG/0.5 ML NEB SOLUTION NEB SCH ×4 (01:57→19:16)
[2018-08-03 04:59] LABS: HEMATOCRIT 24.8 % (36-46); HEMOGLOBIN 8.3 g/dL (12.0-16.0); MEAN CORPUSCULAR HGB CONC 33.6 G/dL (31.0-37.0); MEAN CORPUSCULAR VOLUME 98 fL (80-100); PLATELET COUNT (AUTO) 206 K/uL (150-450); RED BLOOD CELL COUNT(AUTO) 2.53 MIL/uL (4.00-5.20); RED CELL DISTRIBUTION WIDTH 14.3 % (11.5-14.5)
[2018-08-03 05:09] LABS: CREATININE 5.68 mg/dL (0.60-1.30); POTASSIUM 3.9 mmol/L (3.5-5.1)
[2018-08-03 05:30] LABS: BAND NEUTROPHILS % (MANUAL) 13 % (0-5); EOSINOPHILS % (MANUAL) 3 % (1-6); LYMPHOCYTES % (MANUAL) 6 % (22-44); MONOCYTES % (MANUAL) 9 % (2-9); SEGMENTED NEUTROPHILS % 69 % (40-70)
[2018-08-03] MEDS ORDERED: SODIUM CHLORIDE 0.9% 1,000 ML IV ONE ×2 (07:02)
[2018-08-03 07:09] LABS: GLUCOSE,POINT OF CARE 102 MG/DL (70-110)
[2018-08-03] MEDS: SEVELAMER CARBONATE 800 MG POWDER PACKET NG SCH ×3 (07:52→21:08)
[2018-08-03] MEDS: CLOPIDOGREL BISULFATE 75 MG TABLET PO SCH (07:52)
[2018-08-03] MEDS: AMIODARONE HCL 200 MG TABLET PO SCH ×3 (07:52→21:09)
[2018-08-03] MEDS: HEPARIN SODIUM,PORCINE 5,000 UNITS/ML VIAL SQ SCH ×2 (07:52→17:23)
[2018-08-03] MEDS: PANTOPRAZOLE SODIUM 40 MG/VIAL IVP SCH (07:52)
[2018-08-03] MEDS: CARVEDILOL 6.25 MG TABLET PO SCH ×2 (07:53→21:09)
[2018-08-03] MEDS: VITAMIN B COMP/VIT C/FOLIC ACID CAPSULE PO SCH (07:53)
[2018-08-03] MEDS: DOCUSATE SODIUM 100 MG CAPSULE PO SCH ×2 (07:53→21:09)
[2018-08-03] MEDS: AmLODIPine BESYLATE 5 MG TABLET PO SCH ×2 (07:53→21:09)
[2018-08-03] MEDS: MetroNIDAZOLE 500 MG TABLET PO SCH ×2 (07:53→17:23)
[2018-08-03] MEDS: -PHARMACY NOTE- MISC SCH (09:00)
[2018-08-03] MEDS: INSULIN LISPRO 100 UNITS/ML SQ PRN (12:16)
[2018-08-03] MEDS: DOXERCALCIFEROL 4 MCG/2 ML VIAL IVP PRN (12:18)
[2018-08-03 12:24] LABS: GLUCOSE,POINT OF CARE 168 MG/DL (70-110)
[2018-08-03] MEDS: CefTRIAXone SODIUM 1 GM in DEXTROSE 5%-WATER 10 ML IV SCH (17:24)
[2018-08-03] MEDS: AZITHROMYCIN 500 MG/NS 250 ML IV SCH (17:28)
[2018-08-03 19:54] LABS: GLUCOMETER DEV NAME(LOC) 5N 1P; GLUCOSE,POINT OF CARE 132 MG/DL (70-110)
[2018-08-03] MEDS: ACYCLOVIR IV SCH (21:08)
[2018-08-03] MEDS: WATER IV SCH (21:08)
[2018-08-03] MEDS: DEXTROSE 5% IV SCH (21:08)
[2018-08-04] MEDS: MetroNIDAZOLE 500 MG TABLET PO SCH ×3 (00:19→18:52)
[2018-08-04] MEDS: HEPARIN SODIUM,PORCINE 5,000 UNITS/ML VIAL SQ SCH ×2 (00:19→08:56)
[2018-08-04] MEDS: ALBUTEROL SULFATE 2.5 MG/0.5 ML NEB SOLUTION NEB SCH ×4 (01:16→19:14)
[2018-08-04] MEDS: IPRATROPIUM BROMIDE 0.5 MG/2.5 ML NEB SOLUTION NEB SCH ×4 (01:16→19:14)
[2018-08-04 04:21] VITALS: BP 158/67
[2018-08-04 07:28] VITALS: BP 155/56
[2018-08-04 08:10] LABS: CALCIUM, TOTAL 9.3 mg/dL (8.8-10.5); CREATININE 4.22 mg/dL (0.60-1.30); PHOSPHORUS 5.4 mg/dL (2.5-4.9); POTASSIUM 4.8 mmol/L (3.5-5.1)
[2018-08-04] MEDS: AmLODIPine BESYLATE 5 MG TABLET PO SCH ×2 (08:57→21:00)
[2018-08-04] MEDS: DOCUSATE SODIUM 100 MG CAPSULE PO SCH ×2 (08:57→20:57)
[2018-08-04] MEDS: VITAMIN B COMP/VIT C/FOLIC ACID CAPSULE PO SCH (08:57)
[2018-08-04] MEDS: CARVEDILOL 6.25 MG TABLET PO SCH ×2 (08:57→21:03)
[2018-08-04] MEDS: AMIODARONE HCL 200 MG TABLET PO SCH ×3 (08:57→21:00)
[2018-08-04] MEDS: CLOPIDOGREL BISULFATE 75 MG TABLET PO SCH (08:57)
[2018-08-04] MEDS: SEVELAMER CARBONATE 800 MG POWDER PACKET NG SCH ×3 (08:58→20:57)
[2018-08-04] MEDS: -PHARMACY NOTE- MISC SCH (09:00)
[2018-08-04 11:39] VITALS: BP 125/47
[2018-08-04] MEDS: PANTOPRAZOLE SODIUM 40 MG/VIAL IVP SCH (12:11)
[2018-08-04] MEDS: INSULIN LISPRO 100 UNITS/ML SQ PRN ×3 (12:24→21:21)
[2018-08-04 15:28] VITALS: BP 135/48
[2018-08-04 16:59] LABS: GLUCOMETER DEV NAME(LOC) 5S 2Q; GLUCOSE,POINT OF CARE 136 MG/DL (70-110)
[2018-08-04] MEDS: AZITHROMYCIN 500 MG/NS 250 ML IV SCH (18:52)
[2018-08-04 19:22] VITALS: BP 127/46
[2018-08-04 19:54] LABS: GLUCOMETER DEV NAME(LOC) 5S 1M; GLUCOSE,POINT OF CARE 177 MG/DL (70-110)
[2018-08-04 19:54] LABS: GLUCOMETER DEV NAME(LOC) 5S 1M; GLUCOSE,POINT OF CARE 112 MG/DL (70-110)
[2018-08-04 19:54] LABS: GLUCOMETER DEV NAME(LOC) 5S 1M; GLUCOSE,POINT OF CARE 188 MG/DL (70-110)
[2018-08-04] MEDS: DEXTROSE 5% IV SCH (20:56)
[2018-08-04] MEDS: CefTRIAXone SODIUM 1 GM in DEXTROSE 5%-WATER 10 ML IV SCH (20:56)
[2018-08-04] MEDS: ACYCLOVIR IV SCH (20:56)
[2018-08-04] MEDS: WATER IV SCH (20:56)
[2018-08-04 23:25] VITALS: BP 138/51
[2018-08-05] MEDS: MetroNIDAZOLE 500 MG TABLET PO SCH ×4 (00:03→23:21)
[2018-08-05] MEDS: IPRATROPIUM BROMIDE 0.5 MG/2.5 ML NEB SOLUTION NEB SCH ×4 (01:24→19:39)
[2018-08-05] MEDS: ALBUTEROL SULFATE 2.5 MG/0.5 ML NEB SOLUTION NEB SCH ×4 (01:24→19:39)
[2018-08-05 03:39] VITALS: BP 145/50
[2018-08-05 06:40] LABS: GLUCOMETER DEV NAME(LOC) 5S 2Q; GLUCOSE,POINT OF CARE 220 MG/DL (70-110)
[2018-08-05 06:59] LABS: GLUCOMETER DEV NAME(LOC) 5S 1M; GLUCOSE,POINT OF CARE 122 MG/DL (70-110)
[2018-08-05] MEDS ORDERED: SODIUM CHLORIDE 0.9% 1,000 ML IV ONE (07:28)
[2018-08-05 07:42] VITALS: BP 144/55
[2018-08-05] MEDS: -PHARMACY NOTE- MISC SCH (09:00)
[2018-08-05] MEDS: CARVEDILOL 6.25 MG TABLET PO SCH ×2 (09:00→20:39)
[2018-08-05] MEDS ORDERED: EPOETIN ALFA 10,000 UNITS/ML VIAL SQ SCH (09:00)
[2018-08-05] MEDS: AMIODARONE HCL 200 MG TABLET PO SCH ×3 (09:00→20:39)
[2018-08-05] MEDS: AmLODIPine BESYLATE 5 MG TABLET PO SCH ×2 (09:00→20:39)
[2018-08-05] MEDS: DOCUSATE SODIUM 100 MG CAPSULE PO SCH ×2 (09:00→20:38)
[2018-08-05] MEDS: SEVELAMER CARBONATE 800 MG POWDER PACKET NG SCH ×3 (09:00→20:38)
[2018-08-05] MEDS ORDERED: SODIUM CHLORIDE 0.9% 2,000 ML IV ONE (09:56)
[2018-08-05 11:09] VITALS: BP 119/54
[2018-08-05 11:40] LABS: HEMATOCRIT 27.7 % (36-46); HEMOGLOBIN 9.5 g/dL (12.0-16.0); MEAN CORPUSCULAR HEMOGLOBIN 33.5 pg (26.0-34.0); MEAN CORPUSCULAR HGB CONC 34.1 G/dL (31.0-37.0); MEAN CORPUSCULAR VOLUME 98 fL (80-100); PLATELET COUNT (AUTO) 284 K/uL (150-450); RED BLOOD CELL COUNT(AUTO) 2.82 MIL/uL (4.00-5.20); RED CELL DISTRIBUTION WIDTH 14.4 % (11.5-14.5)
[2018-08-05 12:27] LABS: BAND NEUTROPHILS % (MANUAL) 1 % (0-5); EOSINOPHILS % (MANUAL) 3 % (1-6); LYMPHOCYTES % (MANUAL) 11 % (22-44); METAMYELOCYTES % 4 % (0-0); MONOCYTES % (MANUAL) 7 % (2-9); MYELOCYTES % 1 % (0-0); PROMYELOCYTES % 1 (0-0); SEGMENTED NEUTROPHILS % 72 % (40-70)
[2018-08-05] MEDS: HYDROCODONE/ACETAMINOPHEN 5-325 MG TABLET PO PRN (13:14)
[2018-08-05] MEDS: PANTOPRAZOLE SODIUM 40 MG/VIAL IVP SCH (15:43)
[2018-08-05] MEDS: VITAMIN B COMP/VIT C/FOLIC ACID CAPSULE PO SCH (15:43)
[2018-08-05 16:14] VITALS: BP 146/50
[2018-08-05] MEDS: DOXERCALCIFEROL 4 MCG/2 ML VIAL IVP PRN (18:46)
[2018-08-05 19:22] VITALS: BP 158/59
[2018-08-05 20:58] LABS: GLUCOMETER DEV NAME(LOC) 5N 1P; GLUCOSE,POINT OF CARE 160 MG/DL (70-110)
[2018-08-05 20:58] LABS: GLUCOMETER DEV NAME(LOC) 5N 1P; GLUCOSE,POINT OF CARE 134 MG/DL (70-110)
[2018-08-05 20:59] LABS: GLUCOMETER DEV NAME(LOC) 5N 1P; GLUCOSE,POINT OF CARE 104 MG/DL (70-110)
[2018-08-05 23:50] VITALS: BP 155/63
[2018-08-06] MEDS: ALBUTEROL SULFATE 2.5 MG/0.5 ML NEB SOLUTION NEB SCH ×4 (02:46→19:29)
[2018-08-06] MEDS: IPRATROPIUM BROMIDE 0.5 MG/2.5 ML NEB SOLUTION NEB SCH ×4 (02:46→19:29)
[2018-08-06 04:14] VITALS: BP 143/58
[2018-08-06 05:38] LABS: GLUCOMETER DEV NAME(LOC) 5S 1M; GLUCOSE,POINT OF CARE 113 MG/DL (70-110)
[2018-08-06 06:13] LABS: BASOPHILS % (AUTO) 0.7 % (0.0-2.0); EOSINOPHILS % (AUTO) 3.4 % (1.0-6.0); HEMATOCRIT 27.2 % (36-46); HEMOGLOBIN 9.2 g/dL (12.0-16.0); LYMPHOCYTES # (AUTO) 0.9 K/uL (1.0-4.8); LYMPHOCYTES % (AUTO) 8.5 % (22.0-44.0); MEAN CORPUSCULAR HEMOGLOBIN 33.8 pg (26.0-34.0); MEAN CORPUSCULAR HGB CONC 33.9 G/dL (31.0-37.0); MEAN CORPUSCULAR VOLUME 100 fL (80-100); MONOCYTES # (AUTO) 0.8 K/uL (0.1-1.0); MONOCYTES % (AUTO) 7.7 % (2.0-9.0); NEUTROPHILS # (AUTO) 8.7 K/uL (1.8-7.7); NEUTROPHILS % (AUTO) 79.7 % (40.0-70.0); PLATELET COUNT (AUTO) 221 K/uL (150-450); RED BLOOD CELL COUNT(AUTO) 2.73 MIL/uL (4.00-5.20); RED CELL DISTRIBUTION WIDTH 14.9 % (11.5-14.5)
[2018-08-06 06:43] LABS: ALBUMIN 2.2 g/dL (3.4-5.0); BILIRUBIN,TOTAL 0.3 mg/dL (0.1-1.0); CREATININE 3.42 mg/dL (0.60-1.30); MAGNESIUM 1.8 mg/dL (1.80-2.40); POTASSIUM 4.2 mmol/L (3.5-5.1); TOTAL PROTEIN, SERUM 6.1 g/dL (6.4-8.2)
[2018-08-06 07:24] VITALS: BP 136/57
[2018-08-06] MEDS: -PHARMACY NOTE- MISC SCH (09:00)
[2018-08-06] MEDS: DOCUSATE SODIUM 100 MG CAPSULE PO SCH ×2 (09:40→20:19)
[2018-08-06] MEDS: VITAMIN B COMP/VIT C/FOLIC ACID CAPSULE PO SCH (09:40)
[2018-08-06] MEDS: SEVELAMER CARBONATE 800 MG POWDER PACKET NG SCH ×3 (09:40→20:19)
[2018-08-06] MEDS: MetroNIDAZOLE 500 MG TABLET PO SCH ×2 (09:41→16:37)
[2018-08-06] MEDS: CARVEDILOL 6.25 MG TABLET PO SCH ×2 (09:41→20:19)
[2018-08-06] MEDS: AMIODARONE HCL 200 MG TABLET PO SCH ×3 (09:41→20:18)
[2018-08-06] MEDS: PANTOPRAZOLE SODIUM 40 MG/VIAL IVP SCH (09:41)
[2018-08-06] MEDS: AmLODIPine BESYLATE 5 MG TABLET PO SCH ×2 (09:41→20:19)
[2018-08-06 11:28] VITALS: BP 125/56
[2018-08-06 16:16] VITALS: BP 101/41
[2018-08-06 19:37] VITALS: BP 150/57
[2018-08-06] MEDS: INSULIN LISPRO 100 UNITS/ML SQ PRN (21:15)
[2018-08-06 23:31] VITALS: BP 130/42
[2018-08-07] MEDS: MetroNIDAZOLE 500 MG TABLET PO SCH ×4 (00:35→23:31)
[2018-08-07] MEDS: IPRATROPIUM BROMIDE 0.5 MG/2.5 ML NEB SOLUTION NEB SCH ×4 (01:29→19:05)
[2018-08-07] MEDS: ALBUTEROL SULFATE 2.5 MG/0.5 ML NEB SOLUTION NEB SCH ×4 (01:29→19:05)
[2018-08-07 04:03] VITALS: BP 131/45
[2018-08-07 06:15] LABS: BASOPHILS % (AUTO) 0.6 % (0.0-2.0); EOSINOPHILS % (AUTO) 2.5 % (1.0-6.0); HEMATOCRIT 27.5 % (36-46); HEMOGLOBIN 9.3 g/dL (12.0-16.0); LYMPHOCYTES # (AUTO) 1.2 K/uL (1.0-4.8); LYMPHOCYTES % (AUTO) 7.9 % (22.0-44.0); MEAN CORPUSCULAR HEMOGLOBIN 33.9 pg (26.0-34.0); MEAN CORPUSCULAR HGB CONC 33.7 G/dL (31.0-37.0); MEAN CORPUSCULAR VOLUME 101 fL (80-100); MONOCYTES # (AUTO) 1.2 K/uL (0.1-1.0); MONOCYTES % (AUTO) 7.8 % (2.0-9.0); NEUTROPHILS # (AUTO) 12.4 K/uL (1.8-7.7); NEUTROPHILS % (AUTO) 81.2 % (40.0-70.0); PLATELET COUNT (AUTO) 238 K/uL (150-450); RED BLOOD CELL COUNT(AUTO) 2.74 MIL/uL (4.00-5.20); RED CELL DISTRIBUTION WIDTH 14.5 % (11.5-14.5)
[2018-08-07 06:34] LABS: CALCIUM, TOTAL 9.4 mg/dL (8.8-10.5); CREATININE 4.99 mg/dL (0.60-1.30); POTASSIUM 4.6 mmol/L (3.5-5.1)
[2018-08-07 07:27] VITALS: BP 138/51
[2018-08-07] MEDS: -PHARMACY NOTE- MISC SCH (08:08)
[2018-08-07] MEDS: CARVEDILOL 6.25 MG TABLET PO SCH ×2 (08:08→20:57)
[2018-08-07] MEDS: AmLODIPine BESYLATE 5 MG TABLET PO SCH ×2 (08:46→20:58)
[2018-08-07] MEDS: DOCUSATE SODIUM 100 MG CAPSULE PO SCH ×2 (08:46→20:58)
[2018-08-07] MEDS: VITAMIN B COMP/VIT C/FOLIC ACID CAPSULE PO SCH (08:46)
[2018-08-07] MEDS: AMIODARONE HCL 200 MG TABLET PO SCH ×3 (08:46→20:57)
[2018-08-07] MEDS: PANTOPRAZOLE SODIUM 40 MG/VIAL IVP SCH (08:46)
[2018-08-07] MEDS: SEVELAMER CARBONATE 800 MG POWDER PACKET NG SCH (08:47)
[2018-08-07 11:17] VITALS: BP 144/49
[2018-08-07] MEDS: INSULIN LISPRO 100 UNITS/ML SQ PRN ×3 (12:53→21:04)
[2018-08-07 13:16] LABS: CHOL/HDL RATIO 2.1 (3.9-5.7); THYROID STIMULATING HORMONE 3.41 uIU/mL (0.36-3.74)
[2018-08-07 13:53] LABS: HEMOGLOBIN A1C 6.7 % (4.5-6.2)
[2018-08-07 15:24] LABS: GLUCOMETER DEV NAME(LOC) 5N 1P; GLUCOSE,POINT OF CARE 242 MG/DL (70-110)
[2018-08-07 15:24] LABS: GLUCOMETER DEV NAME(LOC) 5N 1P; GLUCOSE,POINT OF CARE 101 MG/DL (70-110)
[2018-08-07 15:24] LABS: GLUCOMETER DEV NAME(LOC) 5N 1P; GLUCOSE,POINT OF CARE 133 MG/DL (70-110)
[2018-08-07 15:24] LABS: GLUCOMETER DEV NAME(LOC) 5N 1P; GLUCOSE,POINT OF CARE 167 MG/DL (70-110)
[2018-08-07 15:57] VITALS: BP 147/65
[2018-08-07] MEDS: SEVELAMER CARBONATE 800 MG TABLET PO SCH (16:54)
[2018-08-07 18:09] LABS: MAGNESIUM 1.9 mg/dL (1.80-2.40)
[2018-08-07 19:46] VITALS: BP 146/52
[2018-08-07 23:29] VITALS: BP 149/51
[2018-08-08] MEDS: ALBUTEROL SULFATE 2.5 MG/0.5 ML NEB SOLUTION NEB SCH ×4 (02:41→19:31)
[2018-08-08] MEDS: IPRATROPIUM BROMIDE 0.5 MG/2.5 ML NEB SOLUTION NEB SCH ×4 (02:41→19:31)
[2018-08-08 04:52] VITALS: BP 147/57
[2018-08-08 05:38] LABS: HEMOGLOBIN 8.9 g/dL (12.0-16.0); MEAN CORPUSCULAR HEMOGLOBIN 33.4 pg (26.0-34.0); MEAN CORPUSCULAR HGB CONC 33.2 G/dL (31.0-37.0); MEAN CORPUSCULAR VOLUME 101 fL (80-100); PLATELET COUNT (AUTO) 246 K/uL (150-450); RED BLOOD CELL COUNT(AUTO) 2.68 MIL/uL (4.00-5.20); RED CELL DISTRIBUTION WIDTH 14.8 % (11.5-14.5)
[2018-08-08 05:55] LABS: CALCIUM, TOTAL 9.2 mg/dL (8.8-10.5); CREATININE 6.48 mg/dL (0.60-1.30); POTASSIUM 4.6 mmol/L (3.5-5.1)
[2018-08-08] MEDS: INSULIN LISPRO 100 UNITS/ML SQ PRN ×3 (06:18→18:03)
[2018-08-08] MEDS: -PHARMACY NOTE- MISC SCH (07:11)
[2018-08-08 07:19] VITALS: BP 150/60
[2018-08-08 07:31] LABS: BAND NEUTROPHILS % (MANUAL) 0 % (0-5)
[2018-08-08 07:33] LABS: EOSINOPHILS % (MANUAL) 1 % (1-6); LYMPHOCYTES % (MANUAL) 8 % (22-44); METAMYELOCYTES % 3 % (0-0); MONOCYTES % (MANUAL) 4 % (2-9); SEGMENTED NEUTROPHILS % 84 % (40-70)
[2018-08-08] MEDS: AmLODIPine BESYLATE 5 MG TABLET PO SCH (08:00)
[2018-08-08] MEDS: DOCUSATE SODIUM 100 MG CAPSULE PO SCH (08:00)
[2018-08-08] MEDS: MetroNIDAZOLE 500 MG TABLET PO SCH (08:00)
[2018-08-08] MEDS: SEVELAMER CARBONATE 800 MG TABLET PO SCH ×3 (08:00→18:02)
[2018-08-08] MEDS: CARVEDILOL 6.25 MG TABLET PO SCH (08:00)
[2018-08-08] MEDS: AMIODARONE HCL 200 MG TABLET PO SCH ×2 (08:01→15:36)
[2018-08-08] MEDS: PANTOPRAZOLE SODIUM 40 MG/VIAL IVP SCH (08:01)
[2018-08-08] MEDS: VITAMIN B COMP/VIT C/FOLIC ACID CAPSULE PO SCH (08:01)
[2018-08-08 10:30] LABS: PHOSPHORUS 6.8 mg/dL (2.5-4.9)
[2018-08-08 10:34] VITALS: BP 152/54
[2018-08-08 13:54] LABS: GLUCOMETER DEV NAME(LOC) 5S 1M; GLUCOSE,POINT OF CARE 116 MG/DL (70-110)
[2018-08-08 13:54] LABS: GLUCOMETER DEV NAME(LOC) 5S 1M; GLUCOSE,POINT OF CARE 183 MG/DL (70-110)
[2018-08-08 13:54] LABS: GLUCOMETER DEV NAME(LOC) 5S 1M; GLUCOSE,POINT OF CARE 175 MG/DL (70-110)
[2018-08-08 13:55] LABS: GLUCOMETER DEV NAME(LOC) 5S 1M; GLUCOSE,POINT OF CARE 148 MG/DL (70-110)
[2018-08-08] MEDS: HYDROCODONE/ACETAMINOPHEN 5-325 MG TABLET PO PRN (15:35)
[2018-08-08 16:08] VITALS: BP 140/53
[2018-08-08] MEDS: DOXERCALCIFEROL 4 MCG/2 ML VIAL IVP PRN (18:45)
[2018-08-08] MEDS ORDERED: ALBU8HFA IH (19:19)
[2018-08-08] MEDS ORDERED: AMIO200T44 PO (19:30)
[2018-08-08] MEDS ORDERED: METR500 PO (19:31)
[2018-08-08] MEDS ORDERED: SEVE800PW PO (19:32)
[2018-08-08 19:34] VITALS: BP 126/51
[2018-08-08] MEDS ORDERED: FOLI1CAP2 PO (19:41)
[2018-08-08] MEDS ORDERED: PANT40TA25 PO (19:42)
[2018-08-08 20:11] LABS: GLUCOMETER DEV NAME(LOC) 5S 2Q; GLUCOSE,POINT OF CARE 193 MG/DL (70-110)
[2018-08-08 20:11] LABS: GLUCOMETER DEV NAME(LOC) 5S 1M; GLUCOSE,POINT OF CARE 148 MG/DL (70-110)
== END 2018-08-08 20:29 | DRG 871 ==
LOC: EMS 15:55 → 5N 18:54 → ICU 07-26 19:25 → 5N 08-03 15:05 → 5S 08-03 18:18
PROVIDERS: ADMIT Hospitalist; ATTEND Hospitalist
PROC: 5A1D70Z Performance of Urinary Filtration, Intermittent, Less than 6 Hours Per Day (ICD-10-PCS; 2018-07-25)
PROC: 5A1D70Z Performance of Urinary Filtration, Intermittent, Less than 6 Hours Per Day (ICD-10-PCS; 2018-07-26)
PROC: 05HY33Z Insertion of Infusion Device into Upper Vein, Percutaneous Approach (ICD-10-PCS; 2018-07-28)
PROC: 5A1D70Z Performance of Urinary Filtration, Intermittent, Less than 6 Hours Per Day (ICD-10-PCS; 2018-07-28)
PROC: 5A1D70Z Performance of Urinary Filtration, Intermittent, Less than 6 Hours Per Day (ICD-10-PCS; 2018-07-30)
PROC: 5A09457 Assistance with Respiratory Ventilation, 24-96 Consecutive Hours, Continuous Positive Airway Pressure (ICD-10-PCS; 2018-07-30)
PROC: 4A00X4Z Measurement of Central Nervous Electrical Activity, External Approach (ICD-10-PCS; 2018-07-31)
PROC: 5A1D70Z Performance of Urinary Filtration, Intermittent, Less than 6 Hours Per Day (ICD-10-PCS; 2018-08-01)
PROC: 5A09357 Assistance with Respiratory Ventilation, Less than 24 Consecutive Hours, Continuous Positive Airway Pressure (ICD-10-PCS; 2018-08-02)
PROC: 5A1D70Z Performance of Urinary Filtration, Intermittent, Less than 6 Hours Per Day (ICD-10-PCS; 2018-08-03)
PROC: 05HY33Z Insertion of Infusion Device into Upper Vein, Percutaneous Approach (ICD-10-PCS; principal; 2018-08-04)
PROC: 5A1D70Z Performance of Urinary Filtration, Intermittent, Less than 6 Hours Per Day (ICD-10-PCS; 2018-08-05)
PROC: 5A1D70Z Performance of Urinary Filtration, Intermittent, Less than 6 Hours Per Day (ICD-10-PCS; 2018-08-08)
DX: A41.9 Sepsis, unspecified organism (principal); J18.9 Pneumonia, unspecified organism; J96.01 Acute respiratory failure with hypoxia; N18.6 End stage renal disease; G93.40 Encephalopathy, unspecified; I63.9 Cerebral infarction, unspecified; I50.33 Acute on chronic diastolic (congestive) heart failure; J96.02 Acute respiratory failure with hypercapnia; I13.2 Hypertensive heart and chronic kidney disease with heart failure and with stage 5 chronic kidney disease, or end stage renal disease; N25.81 Secondary hyperparathyroidism of renal origin; J44.0 Chronic obstructive pulmonary disease with (acute) lower respiratory infection; E87.5 Hyperkalemia; E11.22 Type 2 diabetes mellitus with diabetic chronic kidney disease; T42.6X5A Adverse effect of other antiepileptic and sedative-hypnotic drugs, initial encounter; G89.29 Other chronic pain; M54.9 Dorsalgia, unspecified; I25.10 Atherosclerotic heart disease of native coronary artery without angina pectoris; D63.1 Anemia in chronic kidney disease; M16.10 Unilateral primary osteoarthritis, unspecified hip; I34.0 Nonrheumatic mitral (valve) insufficiency; G47.33 Obstructive sleep apnea (adult) (pediatric); I27.20 Pulmonary hypertension, unspecified; E78.5 Hyperlipidemia, unspecified; I48.0 Paroxysmal atrial fibrillation; H40.9 Unspecified glaucoma; Z83.3 Family history of diabetes mellitus; Z99.2 Dependence on renal dialysis; Z90.49 Acquired absence of other specified parts of digestive tract; Z87.891 Personal history of nicotine dependence; Z91.15 Patient's noncompliance with renal dialysis; Z95.5 Presence of coronary angioplasty implant and graft; Z86.19 Personal history of other infectious and parasitic diseases; Z82.49 Family history of ischemic heart disease and other diseases of the circulatory system; Z91.81 History of falling
CPT/HCPCS: 36245; 36569; 70450; 70544; 70551; 76937; 82805; 83036; 83605; 83735; 84100; 84132; 84145; 84443; 86592; 86738; 86788; 86789; 87040; 87081; 87324; 87340; 87449; 90935; 92526; 92610; 93005; 93306; 93880; 94640; 94660; 95816; 96365; 96375; 97110; 97112; 97163; 97167; 97530; 97535; 99291; C9113; J0133; J0282; J0456; J0610; J0696; J0885; J1270; J1644; J1815; J1940; J2270; J2405; J3370; J3490; J7030; J7040; J7050; J7060; P9047

== ENCOUNTER → 2018-10-13 | Outpatient (CLI) | payer MEDICARE, OTHER ==
[~2018-10-13] MED LIST changes: +ACET-784 PO; +ALBU8HFA IH; +AMIO200T44 PO; +ASCO500 PO; -BRIM15OS OU; -CLOP75 PO; -FOLI0.8T2 PO; +FOLI1CAP2 PO; -FURO40 PO; -GABA-531 PO; +HYDR-4061 PO; -INSU100I3 SQ; -INSU100V12 SQ; +METR500 PO; +PANT40TA25 PO; -PHOSLOC PO; -SENN-175 PO; +SEVE0.8P6 PO; -SODI650T PO; -TIMO10DR28 OU
[2018-10-13 10:44] VITALS: BP 137/57
== END | disposition home or self-care (01) ==
LOC: SRCNTR 10:28
PROVIDERS: ATTEND Internal Medicine Cardiovascular Disease
DX: I12.0 Hypertensive chronic kidney disease with stage 5 chronic kidney disease or end stage renal disease (principal); E11.22 Type 2 diabetes mellitus with diabetic chronic kidney disease; N18.6 End stage renal disease; J44.9 Chronic obstructive pulmonary disease, unspecified; E78.5 Hyperlipidemia, unspecified; I25.10 Atherosclerotic heart disease of native coronary artery without angina pectoris; G47.30 Sleep apnea, unspecified
CPT/HCPCS: G0463

== ENCOUNTER → 2018-10-20 | Outpatient (CLI) | payer MEDICARE, OTHER ==
[~2018-10-20] MED LIST changes: +BISA10S PR; +INSU100V SQ; +IPRAHFA IH; -METR500 PO
[2018-10-20 10:31] VITALS: BP 134/40
== END | disposition home or self-care (01) ==
LOC: SRCNTR 10:27
PROVIDERS: ATTEND Internal Medicine Cardiovascular Disease
DX: I12.9 Hypertensive chronic kidney disease with stage 1 through stage 4 chronic kidney disease, or unspecified chronic kidney disease (principal); E11.22 Type 2 diabetes mellitus with diabetic chronic kidney disease; N18.9 Chronic kidney disease, unspecified; I25.10 Atherosclerotic heart disease of native coronary artery without angina pectoris; I63.9 Cerebral infarction, unspecified; E78.5 Hyperlipidemia, unspecified
CPT/HCPCS: G0463